=== PATIENT | female | born 2000 | race Caucasian/White ===

== ENCOUNTER 2023-01-09 06:06 | Emergency (ER) | payer MEDICAID, SELFPAY ==
[2023-01-09 06:09] VITALS: BP 121/81; PULSE 109; RESP 16; TEMP 36.9; O2SAT 98; BMI 20.5
--- NOTE | 2023-01-09 06:23 | EX.ED.DYSGE1 ---
HPI History of Present Illness Chief Complaint: Nausea/Vomiting Detail of Chief Complaint: Vomiting Informant: patient Narrative Narrative: Patient presents to the emergency department complaint not feeling well since 2 AM. Patient states she has vomited x2. She denies any diarrhea. She denies abdominal pain. Patient states that she is 17 weeks . She thinks that she may have had food poisoning and that she ate some chicken wings from [employer] yesterday. Denies sick contacts. Patient is G1, P0. PFSH PFSH Medical History no medical history Home Medications vitamins no.144-folic acid 400 mcg chewable tablet () 1 tab PO DAILY 01/09/23 [History Last Taken Unknown] Allergy/AdvReac Type Severity Reaction Status Date / Time No Known Allergies Allergy Verified 01/09/23 06:07 Social History Smoking Status: Never smoker ROS ROS ED Review of Systems ROS Unobtainable: other Constitutional Constitutional ED: Reports lethargy; Denies chills, fever(s), sweats or weight loss Eyes Eyes: Denies blurry vision, change in vision or diplopia ENT ENT ED: Denies rhinorrhea or sore throat Cardiovascular Cardiovascular: Denies chest pain, orthopnea or racing heartbeat Respiratory/Chest Respiratory/Chest: Denies cough, dyspnea, dyspnea on exertion, orthopnea or sputum Gastrointestinal Gastrointestinal: Reports nausea and vomiting; Denies abdominal pain or diarrhea Genitourinary Genitourinary ED: Denies dysuria, hematuria or urinary frequency Musculoskeletal Musculoskeletal: Denies arthralgias, back pain, myalgias or neck pain Integumentary Denies abscess, Abrasions or rash Neurologic Neurologic: Denies headache(s) or weakness Psychiatric Psychiatric: Denies anxiety, depression or suicidal thoughts Endocrine Endocrinology: Denies polydipsia, polyphagia or polyuria Hematologic/Lymphatic Hematologic/Lymphatic: Denies easy bleeding, easy bruising or lymphadenopathy Allergic/Immunologic Allergic/Immunologic ED: Denies mouth swelling, tongue swelling or urticaria EXAM Physical Exam Narrative Exam Narrative: Patient presents with vomiting x2 with concern for food poisoning. She denies fevers. She does not have any abdominal pain. In the differential would be viral gastroenteritis versus food poisoning versus hyperemesis gravidarum. IV line was established. Basic labs ordered. heart tones ordered and urinalysis ordered. Patient was given a liter normal same fluid bolus and Zofran 4 mg IV. Case will be turned over to morning physician awaiting lab results and final disposition. Const Vital Signs: 01/09/23 06:09 Temperature 98.4 F Temperature Source Temporal Pulse Rate 109 H Respiratory Rate 16 Blood Pressure 121/81 H Blood Pressure Mean 94 Pulse Ox 98 Oxygen Delivery Method Room Air Positive well nourished and well developed General Appearance ED: well developed and NAD HEENT Reports TM's clear and moist mucous membranes normocephalic and atraumatic; Negative for trauma or tenderness Tympanic Membrane ED: Yes TM's clear Eyes PERRL and EOMs intact bilaterally General Eye ED: Negative for pale conjunctiva or scleral icterus Neck no lymphadenopathy, supple and no JVD General: Negative for tenderness Chest Wall inspection of chest normal and palpation of chest normal Chest: Negative for tenderness Resp normal respiratory effort and clear to auscultation bilaterally Effort and Inspection: Negative for respiratory distress or pain with movement Auscultation: Negative for rhonchi, wheezes or diminished lung sounds Cardio regular rate, regular rhythm, S1 normal heart sound, S2 normal heart sound and no murmurs Peripheral Pulses: pulses 2+ throughout GI normal to inspection, nondistended, normoactive bowel sounds, soft to palpation, non-tender, non-distended and no masses Back/Spine no CVA tenderness and no thoracic nor lumbar tenderness Extremity normal to inspection General Extremety ED: Negative for edema General Extremity: Negative for edema Neuro oriented x3, CN's II-XII intact bilaterally, no sensory deficits noted and gait normal Sensorium / Orientation: awake, alert, oriented to person, oriented to place and oriented to time Motor Exam: strength 5/5 throughout and strength abnormal Psych mental status grossly normal Skin no rashes or lesions noted and no wounds MDM MDM MDM Narrative Medical decision making narrative: Is presenting with vomiting concern for food poisoning. IV line established. Patient was medicated with Zofran and given a liter normal same fluid bolus. heart tones ordered. Urinalysis will be obtained. Lab work-up was unremarkable. Case will be turned over to morning physician awaiting urinalysis and final disposition. Lab Data Attestation: I reviewed the patient's lab results. Labs: Laboratory Results - last 24 hr 01/09/23 01/09/23 07:00 08:00 WBC 7.3 RBC 3.50 L Hgb 10.8 L Hct 32.2 L MCV 92.0 MCH 30.9 MCHC 33.5 RDW Std Deviation 42.2 RDW Coeff of Sonu 12.8 Plt Count 178 MPV 9.3 Immature Gran % (Auto) 0.400 Neut % (Auto) 90.6 H Lymph % (Auto) 2.9 L [place] % (Auto) 5.2 Eos % (Auto) 0.6 Baso % (Auto) 0.3 Absolute Neuts (auto) 6.6 Absolute Lymphs (auto) 0.21 L Nucleated RBC % 0 Sodium 136 Potassium 3.6 Chloride 109 H Carbon Dioxide 24.0 Anion Gap 3 L BUN 7 Creatinine 0.52 L Estim Creat Clear Calc 129.14 Est GFR (MDRD) Af Amer 192 Est GFR (MDRD) Non-Af 159 BUN/Creatinine Ratio 13.6 Glucose 89 Calcium 8.4 L Urine Color Yellow Urine Clarity Sl. Cloudy Urine pH 6.0 Ur Specific [place] 1.020 Urine Protein Negative Urine Glucose (UA) Normal Urine Ketones 50 H Urine Occult Blood Negative Urine Nitrite Negative Urine Bilirubin Negative Urine Urobilinogen Normal Ur Leukocyte Esterase Negative Discharge Plan Triage Chief Complaint: Nausea/Vomiting ED Provider: Inocencio Pena Dx/Rx/DC Orders Clinical Impression: , Vomiting Prescriptions: No Action 400 mcg tablet,chewable 1 tab PO DAILY Primary Care Provider: Babs Kauffman Referrals: Babs Kauffman MD [Primary Care Provider] - Disposition Disposition: Home, Self Care
[2023-01-09] MEDS: 0.9% Normal Saline 1,000 ML 1000 ML IV (06:59)
[2023-01-09] MEDS: Ondansetron 4 MG/2 ML Vial IV (06:59)
[2023-01-09 07:07] LABS: Absolute Lymphocyte Count 0.21 X10^3/uL (0.83-4.51); Absolute Neutrophil Count 6.6 X10^3/uL (2.0-7.7); Basophil# 0.02 X10^3/uL; Basophil% 0.3 % (0-1); Eosinophil# 0.04 X10^3/uL; Eosinophils% 0.6 % (0-5); Hematocrit 32.2 % (37-47); Hemoglobin 10.8 g/dL (12.0-15.0); Lymphocyte # 0.21 X10^3/ul (0.83-4.51); Lymphocyte % 2.9 % (19-41); Mean Corp Hgb Conc 33.5 g/dL (32-36); Mean Corpuscular Hgb 30.9 pg (27.0-32.0); Mean Platelet Vol. 9.3 fl (6.2-12.0); Monocyte# 0.38 X10^3/uL; Monocyte% 5.2 % (0-10); NRBC Flagged by Analyzer 0 % (0-5); Neutrophil # 6.59 X10^3/uL (2.7-7.7); Neutrophil % 90.6 % (47-70); POSITIVE DIFFERENTIAL YES; Platelet Count 178 K/mm3 (150-450); RBC Distribution Width CV 12.8 % (11.6-14.6); RBC Distribution Width SD 42.2 fl (35.1-43.9); White Blood Count 7.3 K/mm3 (4.4-11.0)
[2023-01-09 07:11] LABS: Differential Indicated SCAN CRITERIA MET
[2023-01-09 07:24] LABS: Anion Gap 3 (5-15); BUN 7 mg/dL (7-18); BUN/Creat Ratio 13.6 RATIO (10-20); Calcium,Total 8.4 mg/dL (8.5-10.1); Chloride 109 mmol/L (98-107); Creatinine, Serum 0.52 mg/dL (0.55-1.02); EST Glomerular Filtration Rate 159 mL/min (>60); Est Glom Filt Rate - Afr Amer 192 mL/min (>60); Estimated Creatinine Clearance 129.14 ml/min; Glucose 89 mg/dL (74-106); Potassium 3.6 mmol/L (3.5-5.1); Sodium Level 136 mmol/L (136-145)
[2023-01-09 08:05] LABS: Red Blood Cells-Urine 0 SEEN /hpf (0-5)
[2023-01-09 08:19] LABS: Color, Urine Yellow (Yellow); Glucose, Dipstick Normal (Normal); Ketone-Dipstick 50 mg/dl (Negative); Leukocyte Esterase-Dipstick Negative /ul (Negative); Nitrite-Dipstick Negative (Negative); Occult Blood-Urine Negative /ul (Negative); Protein-Dipstick Negative (Negative); Urine Bilirubin Dipstick Negative (Negative); Urine Clarity Sl. Cloudy (Clear); Urine Urobilinogen Normal (Normal)
[2023-01-09 08:33] LABS: Bacteria RARE /hpf (None Seen); Mucous, Urine RARE /hpf (<or=2+); Squamous Epithelial Cells - UA 5-10 SEEN /hpf (5-10); White Blood Cells 0-5 SEEN /hpf (0-5)
[2023-01-09] MEDS: Metoclopramide 10 MG/2 ML Vial 5 MG IV (09:26)
[2023-01-09] MEDS: 0.9% Normal Saline 1,000 ML 999 ML IV (09:28)
[2023-01-09 12:10] VITALS: BP 118/78; PULSE 64; RESP 14; TEMP 36.6; O2SAT 99
== END 2023-01-09 12:15 | disposition home or self-care (01) ==
PROVIDERS: Emergency Provider Emergency Medicine; PCP Obstetrics & Gynecology; Visit Provider Emergency Medicine
DX: O99.891 Other specified diseases and conditions complicating pregnancy (principal); R11.2 Nausea with vomiting, unspecified; Z3A.17 17 weeks gestation of pregnancy
CPT/HCPCS: 80048; 81001; 85025; 96361; 96374; 96375; 99283; J7030; A4216; J2405

== ENCOUNTER 2023-02-11 15:25 | Outpatient (CLI) | payer MEDICAID, SELFPAY ==
[2023-02-11 15:47] VITALS: BMI 21.4
[2023-02-11 15:49] VITALS: BP 113/61; PULSE 92; O2SAT 100
--- NOTE | 2023-02-11 19:53 | OB.TRI.NOTE ---
HPI - General HPI Narrative TENZIN QIU, is a 22 F who presents Maternal Data Information Final JOHN: 06[birth year] Gestational age: 22&1 PFSH PFSH Home Medications ondansetron 4 mg disintegrating tablet 4 mg PO Q8H PRN PRN Nausea #10 tabs 01/09/23 [Rx Last Taken Unknown] vitamins no.144-folic acid 400 mcg chewable tablet () 1 tab PO DAILY 01/09/23 [History Last Taken 02/11/23 08:00 1 TAB] Allergy/AdvReac Type Severity Reaction Status Date / Time No Known Allergies Allergy Verified 02/11/23 15:45 Social History Smoking Status: Never smoker Assessment & Plan (1) Abdominal cramping: PLAN: Plan FHTS reassuring at 130 Patient with likely GI virus
== END 2023-02-11 16:40 | disposition home or self-care (01) ==
LOC: WPOUT 15:30 → WP 15:30
PROVIDERS: Referring Provider Obstetrics & Gynecology; Visit Provider Obstetrics & Gynecology
DX: O99.891 Other specified diseases and conditions complicating pregnancy (principal); R10.9 Unspecified abdominal pain; Z3A.22 22 weeks gestation of pregnancy
CPT/HCPCS: 99221; G0378

== ENCOUNTER 2023-04-25 11:55 | Emergency (ER) | payer MEDICAID, SELFPAY ==
[2023-04-25 11:55] VITALS: BP 126/86; PULSE 85; RESP 16; TEMP 36.2; O2SAT 99; BMI 22.8
--- NOTE | 2023-04-25 12:51 | CT_ITS ---
STUDY: CTA CHEST REASON FOR EXAM: Female, 22 years old. Pulmonary embolism -- third trimester . Chest pain for 4 days. RADIATION DOSAGE (If Supplied By Facility): CTDIvol = ( 4.81 ) mGy, DLP = ( 108.62 ) mGycm TECHNIQUE: The examination was performed with the intravenous administration of IV 100mL Isovue-370. Post-processing of the angiographic images was performed, with multiplanar reformation and 3D reconstruction. Individualized dose optimization techniques were used for this CT. COMPARISON: None. FINDINGS: Normal enhancement of the main pulmonary artery and right and left pulmonary arteries. Normal enhancement of the bilateral peripheral pulmonary arteries. There is no demonstrated pulmonary embolism. Normal thoracic aorta and visualized great vessels. There is no demonstrated aortic dissection. Normal heart and pericardium. Normal mediastinum. Normal hilar regions. Normal visualized trachea and bronchi. The lungs are well expanded. Normal pulmonary parenchyma. Normal pleura. Normal chest wall structures. Normal osseous structures. Normal visualized upper abdomen. CT/CTA Chest W/WO Contrast IMPRESSION: Normal CTA chest examination, without a demonstrated pulmonary embolism or arterial dissection. Electronically Signed: Homer Marcano MD at 13:36 EST ,
--- NOTE | 2023-04-25 12:53 | EX.ED.DYSGE1 ---
HPI History of Present Illness Chief Complaint: Chest Pain Informant: patient Narrative Narrative: 22-year-old female presenting to the emergency room for chest pain. Symptoms have been present for approximately 4 days. She states they are constant. She describes it as sharp midsternal pain that is worse with lying in certain positions walking and deep breathing. She denies any belching or reflux. No cough or fever. She states that she is 32 weeks . He has not had any complications this . She reports feeling short of breath at times. Laying on her left side seems to improve it. She states that her chest does not sore to touch. PFSH PFS Medical History no medical history no medical history Home Medications vitamins no.144-folic acid 400 mcg chewable tablet () 1 tab PO DAILY 01/09/23 [History Last Taken 02/11/23 08:00 1 TAB] famotidine 20 mg tablet 20 mg PO DAILY 04/25/23 [History Last Taken Unknown] Allergy/AdvReac Type Severity Reaction Status Date / Time No Known Allergies Allergy Verified 02/11/23 15:45 Social History Smoking Status: Never smoker ROS ROS ED Constitutional Constitutional ED: Denies chills, fever(s) or weight loss Eyes Eyes: Denies change in vision or diplopia ENT ENT ED: Denies ear pain, rhinorrhea or sore throat Cardiovascular Cardiovascular: Reports chest pain; Denies orthopnea, palpitations or racing heartbeat Respiratory/Chest Respiratory/Chest: Reports cough and dyspnea on exertion; Denies dyspnea or orthopnea Gastrointestinal Gastrointestinal: Denies abdominal pain, diarrhea, nausea or vomiting Genitourinary Genitourinary ED: Denies dysuria, hematuria or urinary frequency Musculoskeletal Musculoskeletal: Denies arthralgias or myalgias Integumentary Denies abscess or rash Neurologic Neurologic: Denies headache(s) or weakness Psychiatric Psychiatric: Denies anxiety, depression, suicidal ideation or suicidal thoughts Endocrine Endocrinology: Denies polydipsia, polyphagia or polyuria Allergic/Immunologic Allergic/Immunologic ED: Denies mouth swelling, tongue swelling or urticaria EXAM Physical Exam Const Vital Signs: 04/25/23 11:55 04/25/23 13:02 Temperature 97.2 F L Temperature Source Temporal Pulse Rate 85 Respiratory Rate 16 Respiratory Effort Normal Blood Pressure 126/86 H Blood Pressure Mean 99 Pulse Ox 99 Oxygen Delivery Method Room Air Positive well nourished and well developed General Appearance ED: well developed HEENT Reports normocephalic, head/scalp atraumatic and moist mucous membranes Eyes PERRL and EOMs intact bilaterally Neck no lymphadenopathy, supple and no JVD Resp normal respiratory effort and clear to auscultation bilaterally Cardio regular rate, regular rhythm and no murmurs GI normal to inspection, nondistended, normoactive bowel sounds and non-tender Palpation: soft Back/Spine no CVA tenderness and normal ROM Extremity normal to inspection General Extremety ED: Negative for edema General Extremity: Negative for edema Neuro oriented x3 and CN's II-XII intact bilaterally Sensorium / Orientation: alert Motor Exam: strength 5/5 throughout Psych mental status grossly normal Mood & Affect: Negative for depressed or tearful Skin no rashes or lesions noted and no wounds MDM MDM MDM Narrative Medical decision making narrative: Patient is EKG is normal sinus rhythm with incomplete right bundle branch block. Troponin is normal at 5. CBC with a hemoglobin of 10.7 which is not new. CTA of the chest demonstrated no pulmonary embolism or dissection. No large pericardial effusion noted. I do not believe that this is pericarditis, myocarditis, ACS, embolism, dissection, pneumothorax, or other acute intrathoracic emergency. Given the above findings and the nature of her pain is most likely musculoskeletal in nature. 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 Tylenol for pain return if worsening or concerns History & Record Review Discussion w/independent historian: Patient Additional record(s) reviewed:: Prior ED visit and Prior labs Lab Data Attestation: I reviewed the patient's lab results. Labs: Laboratory Results - last 24 hr 04/25/23 13:04 WBC 8.4 RBC 3.48 L Hgb 10.7 L Hct 31.7 L MCV 91.1 MCH 30.7 MCHC 33.8 RDW Std Deviation 41.3 RDW Coeff of Sonu 12.6 Plt Count 167 MPV 9.5 Immature Gran % (Auto) 0.600 Neut % (Auto) 70.7 H Lymph % (Auto) 20.5 [place] % (Auto) 7.1 Eos % (Auto) 0.7 Baso % (Auto) 0.4 Absolute Neuts (auto) 5.9 Absolute Lymphs (auto) 1.72 Nucleated RBC % 0 Sodium 138 Potassium 3.7 Chloride 110 H Carbon Dioxide 21.0 Anion Gap 7 BUN 5 L Creatinine 0.53 L Estim Creat Clear Calc 126.70 Est GFR (MDRD) Af Amer 185 Est GFR (MDRD) Non-Af 153 BUN/Creatinine Ratio 9.4 L Glucose 86 Calcium 8.7 Troponin I High Sens 5 Radiography Diagnostic Testing: Clinical Impression(s) from Imaging Studies Chest CTA 04/25/23 12:51 IMPRESSION: Normal CTA chest examination, without a demonstrated pulmonary embolism or arterial dissection. Electronically Signed: Homer Marcano MD at 13:36 EST , EKG Initial EKG: Attestation: I personally reviewed and interpreted this EKG as follows: Comments: Normal sinus rhythm with an incomplete right bundle branch block. Ventricular rate is 85 bpm. 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 Disposition Disposition: Home, Self Care
[2023-04-25 13:08] LABS: Absolute Lymphocyte Count 1.72 X10^3/uL (0.83-4.51); Absolute Neutrophil Count 5.9 X10^3/uL (2.0-7.7); Basophil# 0.03 X10^3/uL; Basophil% 0.4 % (0-1); Eosinophil# 0.06 X10^3/uL; Eosinophils% 0.7 % (0-5); Hematocrit 31.7 % (37-47); Hemoglobin 10.7 g/dL (12.0-15.0); Lymphocyte # 1.72 X10^3/ul (0.83-4.51); Lymphocyte % 20.5 % (19-41); Mean Corp Hgb Conc 33.8 g/dL (32-36); Mean Corpuscular Hgb 30.7 pg (27.0-32.0); Mean Corpuscular Volume 91.1 fL (81-99); Mean Platelet Vol. 9.5 fl (6.2-12.0); Monocyte% 7.1 % (0-10); NRBC Flagged by Analyzer 0 % (0-5); Neutrophil # 5.94 X10^3/uL (2.7-7.7); Neutrophil % 70.7 % (47-70); Platelet Count 167 K/mm3 (150-450); RBC Distribution Width CV 12.6 % (11.6-14.6); RBC Distribution Width SD 41.3 fl (35.1-43.9); Red Blood Count 3.48 M/mm3 (4.2-5.4); White Blood Count 8.4 K/mm3 (4.4-11.0)
[2023-04-25 13:29] LABS: Anion Gap 7 (5-15); BUN 5 mg/dL (7-18); BUN/Creat Ratio 9.4 RATIO (10-20); Calcium,Total 8.7 mg/dL (8.5-10.1); Chloride 110 mmol/L (98-107); Creatinine, Serum 0.53 mg/dL (0.55-1.02); EST Glomerular Filtration Rate 153 mL/min (>60); Est Glom Filt Rate - Afr Amer 185 mL/min (>60); Glucose 86 mg/dL (74-106); Potassium 3.7 mmol/L (3.5-5.1); Sodium Level 138 mmol/L (136-145); Troponin-I HS 5 pg/mL (3.0-54.0)
--- NOTE | 2023-04-25 14:01 | EKG12_ITS ---
Test Reason : CP Blood Pressure : / mmHG Vent. Rate : 085 BPM Atrial Rate : 085 BPM P-R Int : 114 ms QRS Dur : 104 ms QT Int : 412 ms P-R-T Axes : 007 054 017 degrees QTc Int : 490 ms Normal sinus rhythm Incomplete right bundle branch block Nonspecific ST abnormality Prolonged QT Abnormal ECG Confirmed by ALYSON YOUSSEF, KAYKAY ([id number]), editorial assistant SANTO TONG ([id number]) on 05/06/2023 8:42:14 AM Referred By: MELONIE/SUZANNE Confirmed By:KAYKAY SHIELDS MD
[2023-04-25 14:41] VITALS: BP 118/81; PULSE 99; RESP 16; O2SAT 96
== END 2023-04-25 14:42 | disposition home or self-care (01) ==
PROVIDERS: Emergency Provider Emergency Medicine; Visit Provider Emergency Medicine
DX: R07.9 Chest pain, unspecified (principal); O99.413 Diseases of the circulatory system complicating pregnancy, third trimester; I45.10 Unspecified right bundle-branch block; Z3A.32 32 weeks gestation of pregnancy
CPT/HCPCS: 71275; 80048; 84484; 85025; 93005; 99283; Q9967; A4216

== ENCOUNTER 2023-04-28 16:45 | Emergency (ER) | payer MEDICAID, SELFPAY ==
[2023-04-28 16:51] VITALS: BP 123/76; PULSE 103; RESP 18; TEMP 36.3; O2SAT 99; BMI 23.3
[2023-04-28 16:54] VITALS: BP 123/76; PULSE 103; RESP 18; TEMP 36.3; O2SAT 99
--- NOTE | 2023-04-28 17:05 | EKG12_ITS ---
Test Reason : CP Blood Pressure : / mmHG Vent. Rate : 090 BPM Atrial Rate : 090 BPM P-R Int : 112 ms QRS Dur : 108 ms QT Int : 388 ms P-R-T Axes : 009 061 013 degrees QTc Int : 474 ms Normal sinus rhythm Right bundle branch block Abnormal ECG Confirmed by ALYSON YOUSSEF, KAYKAY ([id number]), news editor SANTO TONG ([id number]) on 05/06/2023 9:25:06 AM Referred By: KACEY Confirmed By:KAYKAY SHIELDS MD
--- NOTE | 2023-04-28 17:06 | EDS_ITS ---
HPI History of Present Illness Chief Complaint: Chest Other Detail of Chief Complaint: Chest pain Informant: patient Narrative Narrative: Patient presents to the emergency department complaint of chest pain x 1 week. Patient was seen in the emergency department 3 days ago and was told pain may be related to the in the uterus enlarging pressing up against the chest. Patient was told to come back if the pain worsened. Patient continues to complain of pain that is constant and describes it as sharp and worse with movement and deep breath at times. She is G1, P0. She is about 33 weeks . No prior history of PE or DVT. Denies recent illness. She denies cough. She denies fever. [facility] Medical History (Updated 04/28/23 @ 18:[address] Inocencio Pena DO) Cheek injury Home Medications vitamins no.144-folic acid 400 mcg chewable tablet () 1 tab PO DAILY 01/09/23 [History Last Taken 04/28/23] famotidine 20 mg tablet 20 mg PO DAILY 04/25/23 [History Last Taken 04/28/23] Allergy/AdvReac Type Severity Reaction Status Date / Time No Known Allergies Allergy Verified 04/28/23 16:50 Social History Smoking Status: Never smoker ROS ROS ED Review of Systems ROS Unobtainable: other Constitutional Constitutional ED: Reports lethargy; Denies chills, fever(s), sweats or weight loss Eyes Eyes: Denies blurry vision, change in vision or diplopia ENT ENT ED: Denies rhinorrhea or sore throat Cardiovascular Cardiovascular: Reports chest pain; Denies orthopnea or racing heartbeat Respiratory/Chest Respiratory/Chest: Reports dyspnea and dyspnea on exertion; Denies cough, orthopnea or sputum Gastrointestinal Gastrointestinal: Denies abdominal pain, diarrhea, nausea or vomiting Genitourinary Genitourinary ED: Denies dysuria, hematuria or urinary frequency Musculoskeletal Musculoskeletal: Denies arthralgias, back pain, myalgias or neck pain Integumentary Denies abscess, Abrasions or rash Neurologic Neurologic: Denies headache(s) or weakness Psychiatric Psychiatric: Denies anxiety, depression or suicidal thoughts Endocrine Endocrinology: Denies polydipsia, polyphagia or polyuria Hematologic/Lymphatic Hematologic/Lymphatic: Denies easy bleeding, easy bruising or lymphadenopathy Allergic/Immunologic Allergic/Immunologic ED: Denies mouth swelling, tongue swelling or urticaria EXAM Physical Exam Const Vital Signs: 04/28/23 16:51 04/28/23 16:54 04/28/23 17:39 Temperature 97.4 F L 97.4 F L Temperature Source Temporal Temporal Pulse Rate 103 H 103 H Respiratory Rate 18 18 Respiratory Effort Non-Labored Short of Breath Respiratory Pattern Normal Blood Pressure 123/76 H 123/76 H Blood Pressure Mean 91 91 Pulse Ox 99 99 Oxygen Delivery Method Room Air Room Air 04/28/23 18:29 Temperature 98.0 F Temperature Source Pulse Rate 85 Respiratory Rate 18 Respiratory Effort Respiratory Pattern Blood Pressure 115/74 Blood Pressure Mean 87 Pulse Ox 99 Oxygen Delivery Method Positive well nourished and well developed General Appearance ED: well developed and NAD HEENT Reports TM's clear and moist mucous membranes normocephalic and atraumatic; Negative for trauma or tenderness Tympanic Membrane ED: Yes TM's clear Eyes PERRL and EOMs intact bilaterally General Eye ED: Negative for pale conjunctiva or scleral icterus Neck no lymphadenopathy, supple and no JVD General: Negative for tenderness Chest Wall inspection of chest normal and palpation of chest normal Chest: Negative for tenderness Resp normal respiratory effort and clear to auscultation bilaterally Effort and Inspection: Negative for respiratory distress or pain with movement Auscultation: Negative for rhonchi, wheezes or diminished lung sounds Cardio regular rate, regular rhythm, S1 normal heart sound, S2 normal heart sound and no murmurs Peripheral Pulses: pulses 2+ throughout GI normal to inspection, nondistended, normoactive bowel sounds, soft to palpation, non-tender, non-distended and no masses Back/Spine no CVA tenderness and no thoracic nor lumbar tenderness Extremity normal to inspection General Extremety ED: Negative for edema General Extremity: Negative for edema Neuro oriented x3, CN's II-XII intact bilaterally, no sensory deficits noted and gait normal Sensorium / Orientation: awake, alert, oriented to person, oriented to place and oriented to time Motor Exam: strength 5/5 throughout and strength abnormal Psych mental status grossly normal Skin no rashes or lesions noted and no wounds MDM MDM MDM Narrative Medical decision making narrative: Patient presents with 1 week history of sharp chest pain. She was seen in the emergency department 3 days ago for the same complaint. Patiently initially did not tell me that she had a CTA of her chest 3 days ago that was unremarkable. I did order basic labs and an EKG on arrival. EKG showed a sinus rhythm with a rate of 90 bpm with right bundle branch block otherwise no acute abnormalities. CBC with differential showed WBC count that was unremarkable and she also had a normal sed rate at 25. Chemistries unremarkable. Troponin was normal. I did give her a GI cocktail and that really did not seem to make much difference in her pain. I did give her some Tylenol for complaint of a headache. Her chest pain is somewhat reproducible therefore I suspect possibly musculoskeletal etiology. Do not feel her exam and history consistent with pericarditis. No evidence of endocarditis. Clinically she looks well. She will continue with Tylenol and does not want any narcotic pain medicine. She is advised to avoid ibuprofen in the third trimester. Lab Data Attestation: I reviewed the patient's lab results. Labs: Laboratory Results - last 24 hr 04/28/23 17:35 WBC 10.1 RBC 3.49 L Hgb 11.1 L Hct 31.9 L MCV 91.4 MCH 31.8 MCHC 34.8 RDW Std Deviation 42.4 RDW Coeff of Sonu 13.0 Plt Count 214 MPV 9.7 Immature Gran % (Auto) 0.500 Neut % (Auto) 73.6 H Lymph % (Auto) 16.7 L [place] % (Auto) 7.6 Eos % (Auto) 1.3 Baso % (Auto) 0.3 Absolute Neuts (auto) 7.4 Absolute Lymphs (auto) 1.69 Nucleated RBC % 0 ESR 25 Sodium 138 Potassium 3.8 Chloride 109 H Carbon Dioxide 22.0 Anion Gap 7 BUN 7 Creatinine 0.59 Estim Creat Clear Calc 113.82 Est GFR (MDRD) Af Amer 165 Est GFR (MDRD) Non-Af 136 BUN/Creatinine Ratio 11.9 Glucose 94 Calcium 8.7 Troponin I High Sens 3 EKG Initial EKG: Attestation: I personally reviewed and interpreted this EKG as follows: Comments: Sinus rhythm with rate of 90 bpm with right bundle branch block Discharge Plan Triage Chief Complaint: Chest Other ED Provider: Inocencio Pena Dx/Rx/DC Orders Clinical Impression: Chest pain Instructions: ED Chest Pain, Uncertain Cause Prescriptions: No Action 400 mcg tablet,chewable 1 tab PO DAILY famotidine 20 mg tablet 20 mg PO DAILY Primary Care Provider: Care Physician,No Primary Referrals: Care Physician,No Primary [Primary Care Provider] - Activity Restrictions/Additional Instructions: 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 Return if worsening pain, increasing shortness of breath, or condition worsening weight. Disposition Disposition: Home, Self Care Discharge Date/Time: 04/28/23 18:30
--- NOTE | 2023-04-28 17:08 | NURSING ---
NO OLD EKGS
[2023-04-28] MEDS: Mag Hydrox/Al Hydrox/Simeth 30 ML UDC PO (17:47)
[2023-04-28 17:53] LABS: Absolute Lymphocyte Count 1.69 X10^3/uL (0.83-4.51); Absolute Neutrophil Count 7.4 X10^3/uL (2.0-7.7); Basophil# 0.03 X10^3/uL; Basophil% 0.3 % (0-1); Eosinophil# 0.13 X10^3/uL; Eosinophils% 1.3 % (0-5); Hematocrit 31.9 % (37-47); Hemoglobin 11.1 g/dL (12.0-15.0); Lymphocyte # 1.69 X10^3/ul (0.83-4.51); Lymphocyte % 16.7 % (19-41); Mean Corp Hgb Conc 34.8 g/dL (32-36); Mean Corpuscular Hgb 31.8 pg (27.0-32.0); Mean Corpuscular Volume 91.4 fL (81-99); Mean Platelet Vol. 9.7 fl (6.2-12.0); Monocyte# 0.77 X10^3/uL; Monocyte% 7.6 % (0-10); NRBC Flagged by Analyzer 0 % (0-5); Neutrophil # 7.42 X10^3/uL (2.7-7.7); Neutrophil % 73.6 % (47-70); Platelet Count 214 K/mm3 (150-450); RBC Distribution Width SD 42.4 fl (35.1-43.9); Red Blood Count 3.49 M/mm3 (4.2-5.4); White Blood Count 10.1 K/mm3 (4.4-11.0)
[2023-04-28 18:07] LABS: Anion Gap 7 (5-15); BUN 7 mg/dL (7-18); BUN/Creat Ratio 11.9 RATIO (10-20); Calcium,Total 8.7 mg/dL (8.5-10.1); Chloride 109 mmol/L (98-107); Creatinine, Serum 0.59 mg/dL (0.55-1.02); EST Glomerular Filtration Rate 136 mL/min (>60); Est Glom Filt Rate - Afr Amer 165 mL/min (>60); Estimated Creatinine Clearance 113.82 ml/min; Glucose 94 mg/dL (74-106); Potassium 3.8 mmol/L (3.5-5.1); Sodium Level 138 mmol/L (136-145); Troponin-I HS 3 pg/mL (3.0-54.0)
[2023-04-28] MEDS: Acetaminophen 325 MG Tablet 650 MG PO (18:08)
[2023-04-28 18:11] LABS: Erythrocyte Sedimentation Rate 25 mm/hr (0-30)
[2023-04-28 18:29] VITALS: BP 115/74; PULSE 85; RESP 18; TEMP 36.7; O2SAT 99
== END 2023-04-28 18:30 | disposition home or self-care (01) ==
PROVIDERS: Emergency Provider Emergency Medicine; Visit Provider Emergency Medicine
DX: R07.9 Chest pain, unspecified (principal); O99.413 Diseases of the circulatory system complicating pregnancy, third trimester; I45.10 Unspecified right bundle-branch block; Z3A.33 33 weeks gestation of pregnancy
CPT/HCPCS: 80048; 84484; 85025; 85652; 93005; 99285; A4216

== ENCOUNTER 2023-04-29 17:50 | Outpatient (CLI) | payer MEDICAID, SELFPAY ==
[2023-04-29 18:03] VITALS: BP 126/77; PULSE 88
[2023-04-29 18:08] VITALS: BMI 23.3
[2023-04-29 18:09] VITALS: TEMP 36.6; O2SAT 99
--- NOTE | 2023-05-03 11:13 | PCM.PN.CNM ---
Subjective Subjective 33wd with JOHN 06/16/23. Presents for increased vaginal discharge and possible ROM. Objective Data Objective Data Vital Signs: Vital Signs Temp Pulse BP Pulse Ox 97.9 F 88 126/77 H 99 04/29/23 18:09 04/29/23 18:03 04/29/23 18:03 04/29/23 18:09 Weight: 123 lb 14.397 oz Body Mass Index (BMI) 23.3 NST FHR Rate Baby A Baseline: 115 Variability:: Moderate Accelerations:: 15 x 15 Decelerations:: None NST Reactive:: Yes Uterine Activity:: None Assessment & Plan (1) Vaginal discharge: (2) 33 weeks gestation of : PLAN: Plan 1) ROM plus negative 2) No signs of PTL 3) Reactive NST 4) D/C home, follow up as scheduled for PN care
== END 2023-04-29 18:50 | disposition home or self-care (01) ==
LOC: WPOUT 17:59 → WP 18:00
PROVIDERS: Referring Provider Advanced Practice Midwife; Visit Provider Advanced Practice Midwife
DX: O99.891 Other specified diseases and conditions complicating pregnancy (principal); N89.8 Other specified noninflammatory disorders of vagina; Z3A.33 33 weeks gestation of pregnancy
CPT/HCPCS: 59025; 59050; 99221; G0378

== ENCOUNTER 2023-05-02 22:10 | Outpatient (CLI) | payer MEDICAID, SELFPAY ==
[2023-05-02 22:20] VITALS: BMI 23.4
--- OUTSIDE RECORDS SUMMARY | 2023-05-02 22:20 | XMS RPT_ITS | CCD ---
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 1:20 PM EST SEQUENTIAL SCREENINGS The [facility] offers sequential screenings for women who are interested in screenings for chromosomal abnormalities and certain defects during a . The sequential screen combines ultrasound and blood tests to determine the risk of chromosomal abnormalities, including Down's Syndrome (Trisomy 21) and Trisomy 18, as well as open neural tube defects including spina bifida. Ultrasound examination is performed between 11 weeks and 13 weeks gestational age. Blood tests are drawn after the ultrasound and again later in the between 15 and 21 weeks gestational age. Please let your physician know if you are interested in this testing. It will require an appointment with our serology technician. This is not an ultrasound performed by a physician in our office during a routine visit. SIGNS AND SYMPTOMS OF LABOR 1. Contractions every 10 minutes or more often 2. Clear, pink, or brownish fluid (water) leaking from vagina 3. Feeling that baby is pushing down, pressure 4. Low, dull backache 5. Cramps that feel like a period 6. Cramps with or without diarrhea If you notice any of the above symptoms, contact our office at [phone] and ask to speak with a nurse. After hours, you can call doctors registry at [phone] OR call [facility] at [phone] and ask to have the doctor proration clerk paged. If you consider this an emergency, dial 3-2-8 or go to your nearest emergency department. NEED HELP? Are you dealing with a violent or abusive relationship? Are you a victim of rape or sexual assult? Call [facility] ([place]) 24 hour Crisis Hotline: 625.387.6347 or 482-009-7092. MANUAL Your Guide to a Healthy manual is now on-line. Visit [email or web address] [email or web address] to download your free copy documented in this encounter [facility] 03-12-2023 Miscellaneous Notes RAMON-S: Yee Qiu is a 22 year old female who presents at 26w2d with JOHN:06/16/2023, by Last Menstrual Period for a routine visit. Good FM. Denies headache, visual changes, chest pain, shortness of breath, vaginal bleeding, leakage of fluid, or dysuria. Feeling well, no complaints. O: See flow sheet Gen: No apparent distress Abd: Gravid, nontender ASSESSMENT/PLAN: 1. Encounter for care in second trimester of first 2. 26 weeks gestation of 3. with care elsewhere, antepartum 4. History of anxiety 5. Family history of spina bifida P: 1) PTL precautions reviewed and when to call 2) RTO in 2 weeks 3) Skin rash, OTC treatment at this time, if no improvement to follow up 4)1hr GTT, CBC, RPR next visit 5) Tdap next visit Chelsy Gutierrez APRN.CNM documented in this encounter [facility] 03-12-2023 Instructions Chelsy Gutierrez APRN.CNM - 03/12/2023 9:13 AM EST SEQUENTIAL SCREENINGS The [facility] offers sequential screenings for women who are interested in screenings for chromosomal abnormalities and certain defects during a . The sequential screen combines ultrasound and blood tests to determine the risk of chromosomal abnormalities, including Down's Syndrome (Trisomy 21) and Trisomy 18, as well as open neural tube defects including spina bifida. Ultrasound examination is performed between 11 weeks and 13 weeks gestational age. Blood tests are drawn after the ultrasound and again later in the between 15 and 21 weeks gestational age. Please let your physician know if you are interested in this testing. It will require an appointment with our serology technician. This is not an ultrasound performed by a physician in our office during a routine visit. SIGNS AND SYMPTOMS OF LABOR 1. Contractions every 10 minutes or more often 2. Clear, pink, or brownish fluid (water) leaking from vagina 3. Feeling that baby is pushing down, pressure 4. Low, dull backache 5. Cramps that feel like a period 6. Cramps with or without diarrhea If you notice any of the above symptoms, contact our office at [phone] and ask to speak with a nurse. After hours, you can call doctors registry at [phone] OR call [facility] at [phone] and ask to have the doctor proration clerk paged. If you consider this an emergency, dial 9-1-4 or go to your nearest emergency department. NEED HELP? Are you dealing with a violent or abusive relationship? Are you a victim of rape or sexual assult? Call [facility] ([facility] 24 hour Crisis Hotline: 581.658.2613 or 417-008-0082. Skin rash - Tinea versicolor Tinea versicolor is a common fungal infection of the skin. The fungus interferes with the normal pigmentation of the skin, resulting in small, discolored patches. These patches may be fiberglass autobody repairer or darker in color than the surrounding skin and most commonly affect the trunk and shoulders. Tinea versicolor (TIN-ee-uh nvh-ip-ZIM-ur), occurs most frequently in teens and young adults. Sun exposure may make tinea versicolor more apparent. Tinea versicolor, which is also called pityriasis versicolor, is not painful or contagious. But it can lead to emotional distress or self-consciousness. Antifungal creams, lotions or shampoos can help treat tinea versicolor. But even after successful treatment, skin color may remain uneven for several weeks or months. Tinea versicolor often recurs, especially in warm, humid weather. Tinea versicolor signs and symptoms include: Patches of skin discoloration, usually on the back, chest, neck and upper arms, which may appear fiberglass autobody repairer or darker than usual Mild itching Scaling When to see a doctor See your doctor if: Your skin doesn't improve with self-care measures The fungal infection returns The patches cover large areas of your body The fungus that causes tinea versicolor can be found on healthy skin. It only starts causing problems when the fungus overgrows. A number of factors may trigger this growth, including: Hot, humid weather Oily skin Hormonal changes Weakened immune system You're likely to start by first seeing your family doctor or a general practitioner. He or she may treat you or refer you to a specialist in skin disorders (building trades teacher). What you can do Preparing a list of questions beforehand can help you make the most of your time with your doctor. For tinea versicolor, some basic questions to ask your doctor include: How did I get tinea versicolor? What are other possible causes? Do I need any tests? Is tinea versicolor temporary or long lasting? What treatments are available, and which do you recommend? What side effects can I expect from treatment? How long will it take for my skin to return to normal? Can I do anything to help, such as avoid the sun at certain times or wear a specific sunscreen? I have other health conditions. How can I best manage them together? Is there a generic alternative to the medicine you're prescribing me? Do you have brochures or other printed material I can take home? What websites do you recommend? What to expect from your doctor Your doctor is likely to ask you a number of questions, such as: How long have you had these discolored areas on your skin? Have your symptoms been continuous or occasional? Have you had this or a similar condition in the past? Do the affected areas itch? Does anything seem to improve your symptoms? What, if anything, appears to worsen your symptoms? Your doctor can diagnose tinea versicolor by looking at it. If there's any doubt, he or she may take skin scrapings from the infected area and view them under a microscope. If tinea versicolor is severe or doesn't respond to cxnf-hnr-gpiczbm antifungal medicine, you may need a prescription-strength medication. Some of these medications are topical preparations that you rub on your skin. Others are drugs that you swallow. Examples include: Ciclopirox (Loprox, Penlac) cream, gel or shampoo Fluconazole (Diflucan) tablets or oral solution Itraconazole (Onmel, Sporanox) tablets, capsules or oral solution Ketoconazole (Ketoconazole, Nizoral, others) cream, gel or shampoo Selenium sulfide (Selsun) 2.5 percent lotion or shampoo Even after successful treatment, your skin color may remain uneven for several weeks, or even months. Also, the infection may return in hot, humid weather. In persistent cases, you may need to take a medication once or twice a month to prevent the infection from recurring. First try: 1. Apply Selsun (2.5% Selenium sulfide) shampoo as a lotion to your skin from the neck to the waist and arms. Leave on for about 20 minutes, and then take a shower. Shampoo your scalp with Selsun and leave lather on for 5 minutes. Use for 4 weeks If no improvement can add For a mild case of tinea versicolor, you can apply an dpjs-tbw-gxmxwla antifungal lotion, cream, ointment or shampoo. Most fungal infections respond well to these topical agents, which include: Clotrimazole (Lotrimin AF) cream or lotion Miconazole (Micaderm) cream Selenium sulfide (Selsun Blue) 1 percent lotion Terbinafine (Lamisil AT) cream or gel Zinc pyrithione soap When using creams, ointments or lotions, wash and dry the affected area. Then apply a thin layer of the product once or twice a day for at least two weeks. If you're using shampoo, rinse it off after waiting five to 10 minutes. If you don't see an improvement after four weeks, see your doctor. You may need a stronger medication. It also helps to protect your skin from the sun and artificial sources of UV light. Usually, the skin tone evens out eventually. To help prevent tinea versicolor from returning, your doctor can prescribe a skin or oral treatment that you use once or twice a month. You may need to use these just during warm and humid months. Preventive treatments include: Selenium sulfide (Selsun) 2.5 percent lotion or shampoo Ketoconazole (Ketoconazole, Nizoral, others) cream, gel, shampoo Itraconazole (Onmel, Sporanox) tablets, capsules or oral solution Fluconazole (Diflucan) tablets or oral solution References 1.Gary HEREDIA. Tinea versicolor. In: Gary's Clinical Advisor 2015: 5 Books in 1. [place] Kary Catapooolt; 2015. https://www.[employer] Accessed July 11, 2014. 2.Fabio DOZIER et al., eds. Yeast infections: Candidiasis, tinea (pityriasis) versicolor and malassezia (pityrosporum) folliculitis. In: William's Dermatology in General Medicine. 8th ed. [place]; 2011. http://www.Moy Univer.Konnektid. Accessed July 11, 2014. 3.Salma Paniagua et al. Interventions for the treatment of pityriasis versicolor. Asa Database of Systematic Reviews. http://ovidsp.Hubkick.ovid.com/sp-3 .14.0b/ovidweb.cgi. Accessed July 11, 2014. 4.AskMayoExpert. Superficial fungal infections. [place] [facility] [employer]; 2012. 5.Tinea versicolor. [place] [employer] Dermatology. www.aad.org/abspxppyjgq-y-jp-z /tdlroxly-fmp-lnpipriqkb/q---t /tinea-versicolor. Accessed July 11, 2014. 6.Tinea versicolor. The Merck Manual Professional Edition. http://www.100du.tvuals.com/pr ofessional/dermatologic_disord ers/fungal_skin_infections/tin ea_versicolor.html. Accessed July 11, 2014. MANUAL Your Guide to a Healthy manual is now on-line. Visit [facility]org/HealthyPre gnancyGuide to download your free copy documented in this encounter [facility] 02-14-2023 Miscellaneous Notes 22w4d Patient called in to the office. See below. States she felt her pulse throughout her entire body. It happened yesterday and once today. Will feel weak with it too. She wasn't feeling anxious at the time. She was working so she sat down, drank some water, and then felt better. She's eating and drinking normally throughout the day. Denies any other symptoms. Patient asking for provider proration clerk to address. Natali Watson RN Ob patient is 22w3d Left message to call office to further triage symptoms Reviewed. [employer] message sent to patient Patient 22w2d, seen in office today, referral to women's behavioral health placed. Does patient just need to schedule or there anything else that needs done? Scheduling number is [phone] documented in this encounter [facility] 02-13-2023 Miscellaneous Notes 2nd risk assessment form submitted 02/13/23 Mira No RN documented in this encounter [facility] 02-12-2023 Note HNO ID: [id number] Author: Chelsy Gutierrez APRN.AKASH Service: ? Author Type: Towel Stretcher Type: Progress Notes Filed: 02/12/2023 2:44 PM Note Text: Ramon-S: Yee Qiu is a 22 year old female who presents at 22w2d with JOHN:06/16/2023, by Last Menstrual Period for a routine visit. Feeling FM. Denies headache, visual changes, chest pain, shortness of breath, vaginal bleeding, leakage of fluid, or dysuria. Feeling well, no complaints. Frequent headaches, trying not to take tylenol everyday, previously took muscle relaxer - that did help. Round ligament pain. Increased anxiety and admits to depression. Denies SI/HI or thoughts of self harm. FOB not involved at this time and not getting along. Increased anxiety over and history of anxiety with no treatment. O: See flow sheet Gen: No apparent distress Abd: Gravid, nontender ASSESSMENT/PLAN: 1. Encounter for care in second trimester of first 2. 22 weeks gestation of P: 1) PTL precautions reviewed and when to call 2) RTO in 4 weeks 3) Tinea Versicolor information given for treatment. 4) Information given on headaches and treatment. Flexeril for acute treatment today. If no improvement to call for neuro consult. 5) Increased anxiety with depression, referral to behavioral health Chelsy Gutierrez APRN.CNM [facility] 02-12-2023 History of Present illness Narrative Ramon-S: Yee Qiu is a 22 year old female who presents at 22w2d with JOHN:06/16/2023, by Last Menstrual Period for a routine visit. Feeling FM. Denies headache, visual changes, chest pain, shortness of breath, vaginal bleeding, leakage of fluid, or dysuria. Feeling well, no complaints. Frequent headaches, trying not to take tylenol everyday, previously took muscle relaxer - that did help. Round ligament pain. Increased anxiety and admits to depression. Denies SI/HI or thoughts of self harm. FOB not involved at this time and not getting along. Increased anxiety over and history of anxiety with no treatment. O: See flow sheet Gen: No apparent distress Abd: Gravid, nontender ASSESSMENT/PLAN: 1. Encounter for care in second trimester of first 2. 22 weeks gestation of P: 1) PTL precautions reviewed and when to call 2) RTO in 4 weeks 3) Tinea Versicolor information given for treatment. 4) Information given on headaches and treatment. Flexeril for acute treatment today. If no improvement to call for neuro consult. 5) Increased anxiety with depression, referral to behavioral health Chelsy Gutierrez APRN.CNM documented in this encounter [facility] 02-12-2023 Instructions Chelsy Gutierrez APRN.CNM - 02/12/2023 9:17 AM EDT SEQUENTIAL SCREENINGS The [facility] offers sequential screenings for women who are interested in screenings for chromosomal abnormalities and certain defects during a . The sequential screen combines ultrasound and blood tests to determine the risk of chromosomal abnormalities, including Down's Syndrome (Trisomy 21) and Trisomy 18, as well as open neural tube defects including spina bifida. Ultrasound examination is performed between 11 weeks and 13 weeks gestational age. Blood tests are drawn after the ultrasound and again later in the between 15 and 21 weeks gestational age. Please let your physician know if you are interested in this testing. It will require an appointment with our serology technician. This is not an ultrasound performed by a physician in our office during a routine visit. SIGNS AND SYMPTOMS OF LABOR 1. Contractions every 10 minutes or more often 2. Clear, pink, or brownish fluid (water) leaking from vagina 3. Feeling that baby is pushing down, pressure 4. Low, dull backache 5. Cramps that feel like a period 6. Cramps with or without diarrhea If you notice any of the above symptoms, contact our office at [phone] and ask to speak with a nurse. After hours, you can call doctors registry at [phone] OR call [facility] at [phone] and ask to have the doctor proration clerk paged. If you consider this an emergency, dial 9-1-5 or go to your nearest emergency department. NEED HELP? Are you dealing with a violent or abusive relationship? Are you a victim of rape or sexual assult? Call [facility] ([place]) 24 hour Crisis Hotline: 201.167.6416 or 362-089-6153. MANUAL Your Guide to a Healthy manual is now on-line. Visit [email or web address]org/HealthyPre gnancyGuide to download your free copy Headache Prevention: 1) Magnesium Citrate 200mg by mouth twice daily 2) Riboflavin 400mg by mouth once daily 3) intensive care specialist 4) Massage therapy 6) For acute headache can take 1 Flexeril, 2 Tylenol, Coffee, Gatorade and cup of coffee.If taking the unisom add that if not taking take benadryl Skin rash - Tinea versicolor Tinea versicolor is a common fungal infection of the skin. The fungus interferes with the normal pigmentation of the skin, resulting in small, discolored patches. These patches may be fiberglass autobody repairer or darker in color than the surrounding skin and most commonly affect the trunk and shoulders. Tinea versicolor (TIN-ee-uh qdl-hn-XCR-ur), occurs most frequently in teens and young adults. Sun exposure may make tinea versicolor more apparent. Tinea versicolor, which is also called pityriasis versicolor, is not painful or contagious. But it can lead to emotional distress or self-consciousness. Antifungal creams, lotions or shampoos can help treat tinea versicolor. But even after successful treatment, skin color may remain uneven for several weeks or months. Tinea versicolor often recurs, especially in warm, humid weather. Tinea versicolor signs and symptoms include: Patches of skin discoloration, usually on the back, chest, neck and upper arms, which may appear fiberglass autobody repairer or darker than usual Mild itching Scaling When to see a doctor See your doctor if: Your skin doesn't improve with self-care measures The fungal infection returns The patches cover large areas of your body The fungus that causes tinea versicolor can be found on healthy skin. It only starts causing problems when the fungus overgrows. A number of factors may trigger this growth, including: Hot, humid weather Oily skin Hormonal changes Weakened immune system You're likely to start by first seeing your family doctor or a general practitioner. He or she may treat you or refer you to a specialist in skin disorders (building trades teacher). What you can do Preparing a list of questions beforehand can help you make the most of your time with your doctor. For tinea versicolor, some basic questions to ask your doctor include: How did I get tinea versicolor? What are other possible causes? Do I need any tests? Is tinea versicolor temporary or long lasting? What treatments are available, and which do you recommend? What side effects can I expect from treatment? How long will it take for my skin to return to normal? Can I do anything to help, such as avoid the sun at certain times or wear a specific sunscreen? I have other health conditions. How can I best manage them together? Is there a generic alternative to the medicine you're prescribing me? Do you have brochures or other printed material I can take home? What websites do you recommend? What to expect from your doctor Your doctor is likely to ask you a number of questions, such as: How long have you had these discolored areas on your skin? Have your symptoms been continuous or occasional? Have you had this or a similar condition in the past? Do the affected areas itch? Does anything seem to improve your symptoms? What, if anything, appears to worsen your symptoms? Your doctor can diagnose tinea versicolor by looking at it. If there's any doubt, he or she may take skin scrapings from the infected area and view them under a microscope. If tinea versicolor is severe or doesn't respond to qdyy-zvc-dijjjgt antifungal medicine, you may need a prescription-strength medication. Some of these medications are topical preparations that you rub on your skin. Others are drugs that you swallow. Examples include: Ciclopirox (Loprox, Penlac) cream, gel or shampoo Fluconazole (Diflucan) tablets or oral solution Itraconazole (Onmel, Sporanox) tablets, capsules or oral solution Ketoconazole (Ketoconazole, Nizoral, others) cream, gel or shampoo Selenium sulfide (Selsun) 2.5 percent lotion or shampoo Even after successful treatment, your skin color may remain uneven for several weeks, or even months. Also, the infection may return in hot, humid weather. In persistent cases, you may need to take a medication once or twice a month to prevent the infection from recurring. First try: 1. Apply Selsun (2.5% Selenium sulfide) shampoo as a lotion to your skin from the neck to the waist and arms. Leave on for about 20 minutes, and then take a shower. Shampoo your scalp with Selsun and leave lather on for 5 minutes. Use for 4 weeks If no improvement can add For a mild case of tinea versicolor, you can apply an ohta-ylk-efgdnjz antifungal lotion, cream, ointment or shampoo. Most fungal infections respond well to these topical agents, which include: Clotrimazole (Lotrimin AF) cream or lotion Miconazole (Micaderm) cream Selenium sulfide (Selsun Blue) 1 percent lotion Terbinafine (Lamisil AT) cream or gel Zinc pyrithione soap When using creams, ointments or lotions, wash and dry the affected area. Then apply a thin layer of the product once or twice a day for at least two weeks. If you're using shampoo, rinse it off after waiting five to 10 minutes. If you don't see an improvement after four weeks, see your doctor. You may need a stronger medication. It also helps to protect your skin from the sun and artificial sources of UV light. Usually, the skin tone evens out eventually. To help prevent tinea versicolor from returning, your doctor can prescribe a skin or oral treatment that you use once or twice a month. You may need to use these just during warm and humid months. Preventive treatments include: Selenium sulfide (Selsun) 2.5 percent lotion or shampoo Ketoconazole (Ketoconazole, Nizoral, others) cream, gel, shampoo Itraconazole (Onmel, Sporanox) tablets, capsules or oral solution Fluconazole (Diflucan) tablets or oral solution References 1.Gary HEREDIA. Tinea versicolor. In: Gary's Clinical Advisor 2015: 5 Books in 1. [place] Kary Sánchez; 2015. [email or web address] KK.[email or web address]. Accessed July 11, 2014. 2.samia Lemon al., eds. Yeast infections: Candidiasis, tinea (pityriasis) versicolor and malassezia (pityrosporum) folliculitis. In: William's Dermatology in General Medicine. 8th ed. [place]; 2011. http://www.InView Technology. Accessed July 11, 2014. 3.Salma Paniagua et al. Interventions for the treatment of pityriasis versicolor. Almo Database of Systematic Reviews. http://ovidsp.Hubkick.Spark Labs.com/sp-3 .14.0b/ovidweb.cgi. Accessed July 11, 2014. 4.AskMayoExpert. Superficial fungal infections. [facility].: [facility]; 2011. 5.Tinea versicolor. [place] Academy of Dermatology. www.aad.org/wqqhgbnxjak-x-yl-z /nxxlsyjb-fan-dtmibupaxi/q---t /tinea-versicolor. Accessed July 11, 2014. 6.Tinea versicolor. The Merck Manual Professional Edition. http://www.MyHeritage.Konnektid/pr ofessional/dermatologic_disord ers/fungal_skin_infections/tin ea_versicolor.html. Accessed July 11, 2014. documented in this encounter [facility] 02-11-2023 Miscellaneous Notes FaceAlertat message to pt. Will await further response. Yary Salguero LPN Does patient have a psychiatrist for care? If not, recommend making appointment with women's behavioral health for virtual visit and to discuss management. Consult placed. Can discuss at her visit as well. If anything worsens she can go to the ED if needed. Chelsy Gutierrez APRN.CNM Patient 22w0d calling with complaints of ongoing panic attacks since Friday. Patient states she is having 2-3 panic attacks per day and they are lasting around 5 minutes. Per patient nothing is triggering the attacks and it does help to do slow deep breaths when it occurs. Patient experiences heart racing and sweating when attacks occur. Denies any depression or thought of harming herself or others. Patient does have an appointment on 02/12 for centering. Christy Serrano RN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 state, incidental Need for vaccination Need for prophylactic vaccination and inoculation against unspecified single disease Encounter for supervision of normal first in third trimester Supervision of normal first [facility] Diagnosis Tinea corporis- Primary Dermatophytosis of the body Encounter for supervision of normal first in third trimester Supervision of normal first with care elsewhere, antepartum History of anxiety Personal history of other mental disorder Family history of spina bifida Family history of congenital anomalies Abnormal glucose complicating Abnormal maternal glucose tolerance, complicating , childbirth, or the puerperium, unspecified as to episode of care 31 weeks gestation of state, incidental documented in this encounter [facility] for referral (narrative)* Diagnostic Procedure Only (Routine) - Authorized Specialty Diagnoses / Procedures Referred By Ingrid gordon Referred To Contact [facility] Diagnoses Encounter for screening of mother Family history of cleft lip and palate Family history of neural tube defect Procedures NUCHAL TRANSLUCENCY WHI US NUCHAL TRANSLUCENCY 1ST GESTATION Regino Tuttle MD [address] [place] [address] [place] [address] Referral ID Status Reason Start Date Expiration Date Visits Requested Visits Authorized [id number] Authorized Auto-Generat ed Referral 12/05/2022 12/05/2023 1 1 [facility] for referral (narrative)* Diagnostic Procedure Only (Routine) - Authorized Specialty Diagnoses / Procedures Referred By Ingrid gordon Referred To Contact [facility] Diagnoses Encounter for care in second trimester of first Procedures OBSTETRIC ULTRASOUND WHI US PREG UTERUS AFTER 1ST TRIMEST GESTATION Jesi TillmanFABRIZIO [address] [place] [address] [facility] [address] [place] [address] Referral ID Status Reason Start Date Expiration Date Visits Requested Visits Authorized [id number] Authorized Auto-Generat ed Referral 12/11/2022 12/11/2023 1 1 [facility] Summary Purpose Family History No Family History Records FoundNo Family History Records FoundNo Family History Records FoundNo Family History Records FoundNo Family History Records FoundNo Family History Records Found Advance Directives No Advanced Directives Records FoundNo Advanced Directives Records FoundNo Advanced Directives Records FoundNo Advanced Directives Records FoundNo Advanced Directives Records FoundNo Advanced Directives Records Found Health Concerns Problem Noted Date Diagnosed Date [facility] Education - COMMON 12/09/2022 Problem Noted Date Diagnosed Date [facility] CC Education - COMMON 12/09/2022 Problem Noted Date Diagnosed Date [facility] CC Education - COMMON 12/09/2022 Problem Noted Date Diagnosed Date [facility] CC Education - COMMON 12/09/2022 Problem Noted Date Diagnosed Date [facility] CC Education - COMMON 12/09/2022 Problem Noted Date Diagnosed Date [facility] CC Education - COMMON 12/09/2022 Problem Noted Date Diagnosed Date [facility] CC Education - COMMON 12/09/2022 Problem Noted Date Diagnosed Date [facility] CC Education - COMMON 12/09/2022 Problem Noted Date Diagnosed Date [facility] CC Education - COMMON 12/09/2022 Problem Noted Date Diagnosed Date [facility] CC Education - COMMON 12/09/2022 Problem Noted Date Diagnosed Date [facility] CC Education - COMMON 12/09/2022 Problem Noted Date Diagnosed Date [facility] CC Education - COMMON 12/09/2022 Additional Source Comments INFORMATION SOURCE (unrecogn ized section and content) DATE CREATED AUTHOR AUTHOR'S ORGANIZ ATION 02/28/2021 [facility] DATE CREATED AUTHOR AUTHOR'S ORGANIZ ATION 02/03/2022 [facility] DATE CREATED AUTHOR AUTHOR'S ORGANIZ ATION 04/06/2023 [facility] DATE CREATED AUTHOR AUTHOR'S ORGANIZ ATION 05/01/2023 [facility] DATE CREATED AUTHOR AUTHOR'S JESS ATION 05/01/2023 [facility] Source Comments (unrecognize d section and content) In the event this informatio n is protected by the Federal Confidentiality of Alcohol and Drug Abuse Patient Records regulations: The Federal rules restrict any use of the information to criminally investigate or prosecute any alcohol or drug abuse patient.[facility] the event this information is protected by the Federal Confidentiality of Alcohol and Drug Abuse Patient Records regulations: The Federal rules restrict any use of the information to criminally investigate or prosecute any alcohol or drug abuse patient.[facility] the event this information is protected by the Federal Confidentiality of Alcohol and Drug Abuse Patient Records regulations: The Federal rules restrict any use of the information to criminally investigate or prosecute any alcohol or drug abuse patient.[facility] the event this information is protected by the Federal Confidentiality of Alcohol and Drug Abuse Patient Records regulations: The Federal rules restrict any use of the information to criminally investigate or prosecute any alcohol or drug abuse patient.[facility] the event this information is protected by the Federal Confidentiality of Alcohol and Drug Abuse Patient Records regulations: The Federal rules restrict any use of the information to criminally investigate or prosecute any alcohol or drug abuse patient.[facility] the event this information is protected by the Federal Confidentiality of Alcohol and Drug Abuse Patient Records regulations: The Federal rules restrict any use of the information to criminally investigate or prosecute any alcohol or drug abuse patient.[facility] the event this information is protected by the Federal Confidentiality of Alcohol and Drug Abuse Patient Records regulations: The Federal rules restrict any use of the information to criminally investigate or prosecute any alcohol or drug abuse patient.[facility] the event this information is protected by the Federal Confidentiality of Alcohol and Drug Abuse Patient Records regulations: The Federal rules restrict any use of the information to criminally investigate or prosecute any alcohol or drug abuse patient.[facility] the event this information is protected by the Federal Confidentiality of Alcohol and Drug Abuse Patient Records regulations: The Federal rules restrict any use of the information to criminally investigate or prosecute any alcohol or drug abuse patient.[facility] Hospital[facility] the event this information is protected by the Federal Confidentiality of Alcohol and Drug Abuse Patient Records regulations: The Federal rules restrict any use of the information to criminally investigate or prosecute any alcohol or drug abuse patient.[facility] Hospital[facility] the event this information is protected by the Federal Confidentiality of Alcohol and Drug Abuse Patient Records regulations: The Federal rules restrict any use of the information to criminally investigate or prosecute any alcohol or drug abuse patient.[facility] Hospital[facility] the event this information is protected by the Federal Confidentiality of Alcohol and Drug Abuse Patient Records regulations: The Federal rules restrict any use of the information to criminally investigate or prosecute any alcohol or drug abuse patient.[facility] Hospital[facility] the event this information is protected by the Federal Confidentiality of Alcohol and Drug Abuse Patient Records regulations: The Federal rules restrict any use of the information to criminally investigate or prosecute any alcohol or drug abuse patient.[facility] Hospital[facility] the event this information is protected by the Federal Confidentiality of Alcohol and Drug Abuse Patient Records regulations: The Federal rules restrict any use of the information to criminally investigate or prosecute any alcohol or drug abuse patient.[facility] Hospital[facility] the event this information is protected by the Federal Confidentiality of Alcohol and Drug Abuse Patient Records regulations: The Federal rules restrict any use of the information to criminally investigate or prosecute any alcohol or drug abuse patient.[facility] Hospital[facility] the event this information is protected by the Federal Confidentiality of Alcohol and Drug Abuse Patient Records regulations: The Federal rules restrict any use of the information to criminally investigate or prosecute any alcohol or drug abuse patient.[facility] Hospital[facility] the event this information is protected by the Federal Confidentiality of Alcohol and Drug Abuse Patient Records regulations: The Federal rules restrict any use of the information to criminally investigate or prosecute any alcohol or drug abuse patient.[facility] HospitalIn the event this information is protected by the Federal Confidentiality of Alcohol and Drug Abuse Patient Records regulations: The Federal rules restrict any use of the information to criminally investigate or prosecute any alcohol or drug abuse patient.[facility] HospitalIn the event this information is protected by the Federal Confidentiality of Alcohol and Drug Abuse Patient Records regulations: The Federal rules restrict any use of the information to criminally investigate or prosecute any alcohol or drug abuse patient.[facility] HospitalIn the event this information is protected by the Federal Confidentiality of Alcohol and Drug Abuse Patient Records regulations: The Federal rules restrict any use of the information to criminally investigate or prosecute any alcohol or drug abuse patient.[facility] Reason for Visit (unrecogniz ed section and content) Reason Comments Initial OB Visit Transfer from [facility] Reason Comments US Specialty Diagnoses / Procedures Referred By Ingrid gordon Referred To Contact [facility] Diagnoses Encounter for screening of mother Family history of cleft lip and palate Family history of neural tube defect Procedures NUCHAL TRANSLUCENCY WHI US NUCHAL TRANSLUCENCY 1ST GESTATION Regino Tuttle MD [address] [place] [address] [facility] [address] [place] [address] Referral ID Status Reason Start Date Expiration Date V isits Requested Visits Authorized [id number] Closed Auto-Generate d Referral 12/05/2022 12/05/2023 1 1 Reason Onset Date Comments Care 01/02/2023 Reason Onset Date Comments Care 01/14/2023 Immunizations 01/14/2023 Flu vaccination Specialty Diagnoses / Procedures Referred By Ingrid gordon Referred To Contact [facility] Diagnoses Encounter for care in second trimester of first Procedures OBSTETRIC ULTRASOUND WHI US PREG UTERUS AFTER 1ST TRIMEST GESTATION Jesi Tillman, [employer] ARCHITECT SPECIALIST [address] [place] [address] [facility] [place] [address] Referral ID Status Reason Start Date Expiration Date V isits Requested Visits Authorized [id number] Closed Auto-Generate d Referral 12/11/2022 12/11/2023 1 1 Reason Comments Patient Question Reason Comments Anxiety Reason Onset Date Comments Care 02/12/2023 Reason Comments PRAF Reason Onset Date Comments Care 03/12/2023 Reason Onset Date Comments Care 03/26/2023 Reason Onset Date Comments Care 04/16/2023 Reason Comments OB HYATT Reason Comments Tip Tester - Other PRAF Care Teams (unrecognized sec tion and content) Voltage Inspector Relationship Specialty Start Date End Date Cleve Turcios PA-C [address] [place] [address] PCP - General 11/28/22 Voltage Inspector Relationship Specialty Start Date End Date Cleve Turcios PA-C [address] [place] [address] PCP - General 11/28/22 Voltage Inspector Relationship Specialty Start Date End Date Cleve Turcios PA-C [address] [place] [address] PCP - General 11/28/22 Voltage Inspector Relationship Specialty Start Date End Date Cleve Chaney PA-C PCP - General 11/28/22 Voltage Inspector Relationship Specialty Start Date End Date Cleve Chaney PA-C PCP - General 11/28/22 Voltage Inspector Relationship Specialty Start Date End Date Cleve Chaney PA-C PCP - General 11/28/22 Voltage Inspector Relationship Specialty Start Date End Date Cleve Chaney PA-C PCP - General 11/28/22 Voltage Inspector Relationship Specialty Start Date End Date Cleve Chaney PA-C PCP - General 11/28/22 Voltage Inspector Relationship Specialty Start Date End Date Cleve Chaney PA-C PCP - General 11/28/22 Voltage Inspector Relationship Specialty Start Date End Date Cleve Chaney PA-C PCP - General 11/28/22 Voltage Inspector Relationship Specialty Start Date End Date Cleve Chaney PA-C PCP - General 11/28/22 Voltage Inspector Relationship Specialty Start Date End Date Cleve Chaney PA-C PCP - General 11/28/22 Voltage Inspector Relationship Specialty Start Date End Date Cleve Chaney PA-C PCP - General 11/28/22 Voltage Inspector Relationship Specialty Start Date End Date Cleve Chaney PA-C PCP - General 11/28/22 Voltage Inspector Relationship Specialty Start Date End Date Cleve Chaney PA-C PCP - General 11/28/22 Voltage Inspector Relationship Specialty Start Date End Date Cleve Chaney PA-C PCP - General 11/28/22 FOR RECORDS PERTAINING TO PATIENTS WHO ARE OR HAVE BEEN ENROLLED IN A CHEMICAL DEPENDENCY/SUBSTANCEABUSE PROGRAM, SOME INFORMATION MAY BE OMITTED. This clinical summary was aggregated from multiple sources. Caution should be exercised in using it in the provision of clinical care. This summary normalizes information from multiple sources, and as a consequence, information in this document may materially change the coding, format and clinical context of patient data. In addition, data may be omitted in some cases. CLINICAL DECISIONS SHOULD BE BASED ON THE PRIMARY CLINICAL RECORDS. [employer] [facility]. provides no warranty or guarantee of the accuracy or completeness of information in this document.
[2023-05-02 22:36] VITALS: BP 120/71; PULSE 88
[2023-05-02 22:37] VITALS: PULSE 95; TEMP 37.4; O2SAT 98
[2023-05-02 23:08] LABS: ROM Internal Control Test YES-OK TO RESULT pt. (Internal QC); ROM Patient Test Negative (Negative); Record Kit Lot#, ROM+ K1374
--- NOTE | 2023-05-16 16:43 | OB.TRI.PN ---
Progress Notes Progress Note: G1PO presents at 35w with complaint of leakage of fluid. Good movement, no vaginal bleeding. Laboratory Studies: Laboratory Tests 05/02/23 Range/Units 22:30 Vag Amniotic Fld Detect Negative (Negative) NST reactive 145, moderate, accels, no decels Assessment & Plan (1) Vaginal discharge: PLAN: Plan ROM plus negative no signs of labor D/C home
== END 2023-05-02 23:25 | disposition home or self-care (01) ==
LOC: WPOUT 22:17 → WP 22:19
PROVIDERS: Referring Provider Advanced Practice Midwife; Visit Provider Advanced Practice Midwife
DX: O99.891 Other specified diseases and conditions complicating pregnancy (principal); N89.8 Other specified noninflammatory disorders of vagina; Z3A.35 35 weeks gestation of pregnancy
CPT/HCPCS: 59050; 84112; 99221; G0378

== ENCOUNTER 2023-05-08 13:50 | Outpatient (CLI) | payer MEDICAID, SELFPAY ==
[2023-05-08 14:02] VITALS: BP 119/82; PULSE 98
[2023-05-08 14:21] VITALS: PULSE 91; TEMP 36.2; O2SAT 98
[2023-05-08 14:34] VITALS: BMI 24.3
[2023-05-08] MEDS: Acetaminophen 500 MG Tablet 1000 MG PO (15:33)
[2023-05-08 15:47] LABS: Color, Urine SEE COMMENT BELOW (Yellow); Glucose, Dipstick Normal (Normal); Ketone-Dipstick Negative (Negative); Leukocyte Esterase-Dipstick 100 /ul (Negative); Nitrite-Dipstick Negative (Negative); Occult Blood-Urine 250 /ul (Negative); Protein-Dipstick 100 mg/dl (Negative); Urine Bilirubin Dipstick Negative (Negative); Urine Clarity Cloudy (Clear); Urine Urobilinogen Normal (Normal)
[2023-05-08 16:46] VITALS: BP 129/80; PULSE 80; O2SAT 98
[2023-05-08 16:47] VITALS: TEMP 36.5
--- NOTE | 2023-05-08 19:19 | OB.TRI.NOTE ---
HPI - General General Date of Service: 05/08/23 HPI Narrative TENZIN QIU, is a 22 F who presents with low back pain. PFSH [facility] Medical History (Updated 05/08/23 @ 19:[address] Jostin Burnett MD) Cheek injury Home Medications vitamins no.144-folic acid 400 mcg chewable tablet () 1 tab PO DAILY 01/09/23 [History Last Taken 05/08/23] famotidine 20 mg tablet 20 mg PO DAILY 04/25/23 [History Last Taken 05/08/23] ferrous sulfate 325 mg (65 mg iron) tablet (FeroSul) 65 mg PO DAILY Anemia 05/08/23 [History Last Taken 05/08/23] Allergy/AdvReac Type Severity Reaction Status Date / Time No Known Allergies Allergy Verified 05/02/23 23:05 Social History Smoking Status: Never smoker NST FHR Rate Baby A Baseline: 115 Variability:: Moderate Accelerations:: 15 x 15 Decelerations:: None NST Reactive:: Yes Uterine Activity:: Irregular Assessment & Plan (1) 34 weeks gestation of : PLAN: Plan Reactive NST for threatened PTL
== END 2023-05-08 17:35 | disposition home or self-care (01) ==
LOC: WPOUT 13:53 → WP 13:53
PROVIDERS: Obstetrics & Gynecology; Referring Provider Obstetrics & Gynecology; Visit Provider Obstetrics & Gynecology
DX: O99.891 Other specified diseases and conditions complicating pregnancy (principal); M54.50 Low back pain, unspecified; Z3A.34 34 weeks gestation of pregnancy
CPT/HCPCS: 59025; 59050; 81002; 99221; G0378

== ENCOUNTER 2023-05-10 17:55 | Outpatient (CLI) | payer MEDICAID, SELFPAY ==
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
[2023-05-10 18:08] VITALS: BP 118/81; PULSE 86; TEMP 36.8
[2023-05-10 18:12] VITALS: BMI 24.0
--- NOTE | 2023-05-10 18:17 | OB.TRI.NOTE ---
HPI - General HPI Narrative TENZIN QIU, is a 22 F who presents for passing a quarter size blood clot and seeing dark brown spotting after wiping. Denies any cramping or contractions. Positive movement. Denies any recent intercourse. [facility] Medical History (Updated 05/10/23 @ 20:35 by Naomi Flores CNM) Cheek injury Home Medications vitamins no.144-folic acid 400 mcg chewable tablet () 1 tab PO DAILY 01/09/23 [History Last Taken 05/10/23 08:00 1 TAB] famotidine 20 mg tablet 20 mg PO DAILY 04/25/23 [History Last Taken 05/10/23 08:00 20 mg] ferrous sulfate 325 mg (65 mg iron) tablet (FeroSul) 65 mg PO DAILY Anemia 05/08/23 [History Last Taken 05/09/23 19:00 65 mg] magnesium citrate (Citrate of Magnesia oral) 250 ml PO DAILY 05/10/23 [History Last Taken 05/10/23 08:00 250 mL] pyridoxine (vitamin B6) 25 mg tablet 25 mg PO DAILY 05/10/23 [History Last Taken 05/10/23 08:00 25 mg] Allergy/AdvReac Type Severity Reaction Status Date / Time No Known Allergies Allergy Verified 05/10/23 18:13 Social History Smoking Status: Never smoker ROS Eyes Eyes: Denies blurry vision Cardiovascular Cardiovascular: Reports none; Denies chest pain at rest, chest pain with activity or dizziness Respiratory/Chest Respiratory/Chest: Denies cough or dyspnea Gastrointestinal Gastrointestinal: Reports none and other; Denies diarrhea or vomiting Genitourinary Genitourinary: Denies dysuria Musculoskeletal Musculoskeletal: Reports none Integumentary Integumentary: Reports none; Denies rash Neurologic Neurologic: Denies dizziness, headache(s) or other visual disturbances Psychiatric Psychiatric: Reports none Physical Exam Const alert and no apparent distress General Appearance: cooperative Orientation / Consciousness: awake Exam Limitations: no limitations HEENT normocephalic Eyes General Eye: normal appearance of both eyes Neck full ROM Chest inspection of chest normal Resp normal respiratory effort and normal air movement Effort and Inspection: symmetric chest movement Auscultation: clear to auscultation bilaterally Cardio regular rate GI soft to palpation, non-tender and non-distended Inspection: and other Back/Spine normal ROM Extremity full ROM, normal capillary refill and no calf tenderness Skin no rashes or lesions noted Neuro oriented x3 and CN's II-XII intact bilaterally Psych mental status grossly normal NST FHR Rate Baby A Baseline: 130 Variability:: Moderate Accelerations:: 15 x 15 Decelerations:: None NST Reactive:: Yes FHR Category:: Category I Uterine Activity:: Irregular Assessment & Plan (1) Vaginal discharge: (2) 34 weeks gestation of : (3) Vaginal spotting: PLAN: Plan No active bleeding CE 1cm / thick/ high- no change after extended monitoring Minimal amount of old, dark blood on glove after exam NST reactive, Cat. 1 tracing Desires discharge home Follow up in office this week
[2023-05-10 19:17] VITALS: TEMP 37.1; O2SAT 98
[2023-05-10 19:19] VITALS: PULSE 86; O2SAT 98
[2023-05-10 19:20] VITALS: BP 123/81; PULSE 80
== END 2023-05-10 20:26 | disposition home or self-care (01) ==
LOC: WPOUT 17:59 → WP 17:59
PROVIDERS: Referring Provider Advanced Practice Midwife; Visit Provider Advanced Practice Midwife
DX: O99.891 Other specified diseases and conditions complicating pregnancy (principal); N89.8 Other specified noninflammatory disorders of vagina; Z3A.34 34 weeks gestation of pregnancy; O26.853 Spotting complicating pregnancy, third trimester
CPT/HCPCS: 59025; 59050; 99221; G0378

== ENCOUNTER 2023-05-13 10:22 | Outpatient (CLI) | payer MEDICAID, SELFPAY ==
[2023-05-13] VITALS (11 sets, daily range): BP systolic 116–124; BP diastolic 72–81; PULSE 75–95; BMI 23.0
--- OUTSIDE RECORDS SUMMARY | 2023-05-13 11:32 | XMS RPT_ITS | CCD ---
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 Diagnoses / Procedures Referred By Ingrid gordon Referred To Contact [facility] Diagnoses Encounter for screening of mother Family history of cleft lip and palate Family history of neural tube defect Procedures NUCHAL TRANSLUCENCY WHI US NUCHAL TRANSLUCENCY 1ST GESTATION [place] Tuttle MD [address] [place] [address] [facility] [address] [place] [address] Referral ID Status Reason Start Date Expiration Date V isits Requested Visits Authorized [id number] Closed Auto-Generate d Referral 12/05/2022 12/05/2023 1 1 Reason Onset Date Comments Care 01/02/2023 Reason Onset Date Comments Care 01/14/2023 Immunizations 01/14/2023 Flu vaccination Specialty Diagnoses / Procedures Referred By Ingrid gordon Referred To Contact [facility] Diagnoses Encounter for care in second trimester of first Procedures OBSTETRIC ULTRASOUND WHI US PREG UTERUS AFTER 1ST TRIMEST GESTATION Jesi Tillman, [employer].HYDRO TECHNICIAN [address] [place] [address] [facility] [place] [place] [address] Referral ID Status Reason Start Date Expiration Date V isits Requested Visits Authorized [id number] Closed Auto-Generate d Referral 12/11/2022 12/11/2023 1 1 Reason Comments Patient Question Reason Comments Anxiety Reason Onset Date Comments Care 02/12/2023 Reason Comments PRAF Reason Onset Date Comments Care 03/12/2023 Reason Onset Date Comments Care 03/26/2023 Reason Onset Date Comments Care 04/16/2023 Reason Comments OB HYATT Reason Comments Manager Domestic - Other PRAF Care Teams (unrecognized sec tion and content) 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 Relationship Specialty Start Date End Date Cleve Turcios PA-C [address] [place] [address] PCP - General 11/28/22 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 Relationship Specialty Start Date End Date Cleve Turcios PA-C [address] [place] [address] PCP - General 11/28/22 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 Relationship Specialty Start Date End Date Cleve Turcios PA-C [address] [place] [address] PCP - General 11/28/22 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 Relationship Specialty Start Date End Date Cleve Chaney PA-C PCP - General 11/28/22 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 Relationship Specialty Start Date End Date Cleve Chaney PA-C PCP - General 11/28/22 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 Relationship Specialty Start Date End Date Cleve Chaney PA-C PCP - General 11/28/22 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 Relationship Specialty Start Date End Date Cleve Chaney PA-C PCP - General 11/28/22 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 Relationship Specialty Start Date End Date Cleve Chaney PA-C PCP - General 11/28/22 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 Relationship Specialty Start Date End Date Cleve Chaney PA-C PCP - General 11/28/22 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 Relationship Specialty Start Date End Date Cleve Chaney PA-C PCP - General 11/28/22 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 Relationship Specialty Start Date End Date Cleve Chaney PA-C PCP - General 11/28/22 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 Relationship Specialty Start Date End Date Cleve Chaney PA-C PCP - General 11/28/22 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 Relationship Specialty Start Date End Date Cleve Chaney PA-C PCP - General 11/28/22 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 Relationship Specialty Start Date End Date Cleve Chaney PA-C PCP - General 11/28/22 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 Relationship Specialty Start Date End Date Cleve Chaney PA-C PCP - General 11/28/22 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 Relationship Specialty Start Date End Date Cleve [...] BE BASED ON THE PRIMARY CLINICAL RECORDS. [employer] [facility]. provides no warranty or guarantee of the accuracy or completeness of information in this document.
[2023-05-13] MEDS: Acetaminophen 500 MG Tablet 1000 MG PO (11:35)
[2023-05-13 12:05] LABS: Hematocrit 31.7 % (37-47); Hemoglobin 10.9 g/dL (12.0-15.0); Mean Corp Hgb Conc 34.4 g/dL (32-36); Mean Corpuscular Hgb 31.1 pg (27.0-32.0); Mean Corpuscular Volume 90.6 fL (81-99); Platelet Count 183 K/mm3 (150-450); RBC Distribution Width CV 12.7 % (11.6-14.6); RBC Distribution Width SD 41.4 fl (35.1-43.9); White Blood Count 9.4 K/mm3 (4.4-11.0)
[2023-05-13 12:09] LABS: AST(SGOT) 15 U/L (15-37); Alanine Aminotransfer ALT/SGPT 19 U/L (13-56); Creatinine, Serum 0.44 mg/dL (0.55-1.02); EST Glomerular Filtration Rate 190 mL/min (>60); Est Glom Filt Rate - Afr Amer 229 mL/min (>60); Estimated Creatinine Clearance 159.96 ml/min; Uric Acid 4.2 mg/dL (2.6-6.0)
[2023-05-13 12:20] LABS: Protein, Urine (Random) < 6.0 mg/dL (<11.9)
--- NOTE | 2023-05-13 14:04 | OB.TRI.HP_ITS ---
HPI - General General Date of Service: 05/13/23 HPI Narrative TENZIN QIU, is a 22 F who presents with headache. Maternal Data Information Final JOHN: 06/16/[birth year] Gestational age: 35&1 [facility] Medical History (Updated 05/13/23 @ 14:[address] Jostin Burnett MD) Cheek injury Home Medications vitamins no.144-folic acid 400 mcg chewable tablet () 1 tab PO DAILY 01/09/23 [History Last Taken 05/10/23 08:00 1 TAB] famotidine 20 mg tablet 20 mg PO DAILY 04/25/23 [History Last Taken 05/10/23 08:00 20 mg] ferrous sulfate 325 mg (65 mg iron) tablet (FeroSul) 65 mg PO DAILY Anemia 05/08/23 [History Last Taken 05/09/23 19:00 65 mg] magnesium citrate (Citrate of Magnesia oral) 250 ml PO DAILY 05/10/23 [History Last Taken 05/10/23 08:00 250 mL] pyridoxine (vitamin B6) 25 mg tablet 25 mg PO DAILY 05/10/23 [History Last Taken 05/10/23 08:00 25 mg] Allergy/AdvReac Type Severity Reaction Status Date / Time No Known Allergies Allergy Verified 05/10/23 18:13 Social History Smoking Status: Never smoker NST FHR Rate Baby A Baseline: 120 Variability:: Moderate Accelerations:: 15 x 15 Decelerations:: None Uterine Activity:: quiet Assessment & Plan (1) Headache in : QUALIFIERS: Trimester: third trimester Qualified Code(s): O26.893 - Other specified related conditions, third trimester; R51.9 - Headache, unspecified PLAN: Plan reactive NST & normal labs for headache in
== END 2023-05-13 13:23 | disposition home or self-care (01) ==
LOC: WPOUT 10:23 → WP 10:23
PROVIDERS: Referring Provider Obstetrics & Gynecology; Visit Provider Obstetrics & Gynecology
DX: O26.893 Other specified pregnancy related conditions, third trimester (principal); R51.9 Headache, unspecified; Z3A.00 Weeks of gestation of pregnancy not specified
CPT/HCPCS: 36415; 59025; 59050; 82565; 82570; 84156; 84450; 84460; 84550; 85027; 99221; G0378

== ENCOUNTER 2023-06-08 21:06 | Outpatient (CLI) | payer MEDICAID, SELFPAY ==
[2023-05-13 10:40] VITALS: TEMP 36.6; O2SAT 99
--- OUTSIDE RECORDS SUMMARY | 2023-06-08 21:19 | XMS RPT_ITS | CCD ---
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 is 12 weeks 3 days by dates. New OB appointment scheduled December 11. Transferring care from Dr. Cuba in [place]. She had 2 visits there. She states that she did have the panorama but did not have the nuchal ultrasound. Panorama was noted in Care Everywhere. Patient would like to have nuchal ultrasound. Please advise if she can have this done. She states she does have a nephew with spina bifida and cleft lip and palate documented in this encounter [facility] 07-09-2022 Note [facility] [id number] , [place] [address] PT OP Discharge Summary : [id number] Signed Name: YEE QIU MRUN: [id number] : 2000 Age/Sex: 22 / F Physician: [...] with any questions or concerns. Dictated By:Saeed WILKEST JESSICAT [id number] Dictated Date/Time:07/09/22 1055 Transcribed Date/Time:07/09/22 1055 07/09/22 1343 [facility] Diagnosis Encounter for care in second trimester of first - Primary Family history of spina bifida Family history of congenital anomalies Encounter for screening for nuchal translucency [facility] Diagnosis Encounter for nuchal translucency testing- Primary Other specified screening Encounter for screening of mother Unspecified screening Family history of cleft lip and palate Family history of congenital anomalies Family history of neural tube defect Family history of other neurological diseases [facility] Diagnosis 16 weeks gestation of - Primary state, incidental [facility] Diagnosis Nausea/vomiting in - Primary Unspecified vomiting of , unspecified as to episode of care 18 weeks gestation of state, incidental Need for influenza vaccination Need for prophylactic vaccination and inoculation against influenza [facility] Diagnosis Encounter for anatomic survey- Primary Encounter for care in second trimester of first 19 weeks gestation of state, incidental [facility] Diagnosis Anxiety neurosis- Primary Anxiety state, unspecified Panic attacks Panic disorder without agoraphobia [facility] Diagnosis Encounter for care in second trimester of first - Primary 22 weeks gestation of state, incidental [facility] Diagnosis Encounter for care in second trimester of first - Primary 26 weeks gestation of state, incidental with care elsewhere, antepartum History of anxiety Personal history of other mental disorder Family history of spina bifida Family history of congenital anomalies [facility] Diagnosis Encounter for care in third trimester of first - Primary 28 weeks gestation of state, incidental Need for vaccination Need for prophylactic vaccination and inoculation against unspecified single disease Encounter for supervision of normal first in third trimester Supervision of normal first [facility] Diagnosis Tinea corporis- Primary Dermatophytosis of [...] of state, incidental [facility] Diagnosis Anxiety- Primary Anxiety state, unspecified Chest pain, unspecified type documented in this encounter [facility] for referral (narrative)* Diagnostic Procedure Only (Routine) - Authorized Specialty Diagnoses / Procedures Referred By Ingrid gordon Referred To Contact [facility] Diagnoses Encounter for screening of mother Family history of cleft lip and palate Family history of neural tube defect Procedures NUCHAL TRANSLUCENCY WHI US NUCHAL TRANSLUCENCY 1ST GESTATION Regino Tuttle MD [address] [place] [address] [facility] [address] [place] [address] Referral ID Status Reason Start Date Expiration Date Visits Requested Visits Authorized [id number] Authorized Auto-Generat ed Referral 12/05/2022 12/05/2023 1 1 [facility] for referral (narrative)* Diagnostic Procedure Only (Routine) - Authorized Specialty Diagnoses / Procedures Referred By Ingrid gordon Referred To Contact [facility] Diagnoses Encounter for care in second trimester of first Procedures OBSTETRIC ULTRASOUND WHI US PREG UTERUS AFTER 1ST TRIMEST 1 GESTATION Jesi Tillman APRN.CNP [address] [place] [address] [facility] [address] [place] [address] Referral ID Status Reason Start Date Expiration Date Visits Requested Visits Authorized [id number] Authorized Auto-Generat ed Referral 12/11/2022 12/11/2023 1 1 [facility] Summary Purpose Family History No [...] Date [facility] CC Education - COMMON 12/09/2022 Reason for Referral Specialty Diagnoses / Procedures Referred By Ingrid gordon Referred To Contact [facility] Diagnoses Anxiety Procedures CONSULT TO PSYCHOLOGY OFFICE/OUTPATIENT [facility] 60 MINUTES Nurys Garcia, PACKING AND WRAPPING SUPERVISOR.CUSTOMER COMPLAINT SERVICE SUPERVISOR [address] [place] [address] [facility] Ref[facility] ID Status Reason Start Date Expiration Date Visits Requested Visits Authorized [id number] Pending Review PCP Requested Referral 05/20/2023 05/19/2024 1 1 Additional Source Comments INFORMATION SOURCE (unrecogn ized section and content) DATE CREATED AUTHOR AUTHOR'S ORGANIZ ATION 02/28/2021 [facility] DATE CREATED AUTHOR AUTHOR'S ORGANIZ ATION 02/03/2022 [facility] DATE CREATED AUTHOR AUTHOR'S ORGANIZ ATION 04/06/2023 [facility] DATE CREATED AUTHOR AUTHOR'S ORGANIZ ATION 05/01/2023 [facility] DATE CREATED AUTHOR AUTHOR'S ORGANIZ ATION 05/25/2023 [facility] DATE CREATED AUTHOR AUTHOR'S ORGANIZ ATION 06/07/2023 [facility] Source Comments (unrecognize d section and content) In the event this informatio n is protected by the Federal Confidentiality of Alcohol and Drug Abuse Patient Records regulations: The Federal rules restrict any use of the information to criminally investigate or prosecute any alcohol or drug abuse patient.[facility] the event this information is protected by the Federal Confidentiality of Alcohol and Drug Abuse Patient Records regulations: The Federal rules restrict any use of the information to criminally investigate or prosecute any alcohol or drug abuse patient.[facility] the event this information is protected by the Federal Confidentiality of Alcohol and Drug Abuse Patient Records regulations: The Federal rules restrict any use of the information to criminally investigate or prosecute any alcohol or drug abuse patient.[facility] the event this information is protected by the Federal Confidentiality of Alcohol and Drug Abuse Patient Records regulations: The Federal rules restrict any use of the information to criminally investigate or prosecute any alcohol or drug abuse patient.[facility] the event this information is protected by the Federal Confidentiality of Alcohol and Drug Abuse Patient Records regulations: The Federal rules restrict any use of the information to criminally investigate or prosecute any alcohol or drug abuse patient.[facility] the event this information is protected by the Federal Confidentiality of Alcohol and Drug Abuse Patient Records regulations: The Federal rules restrict any use of the information to criminally investigate or prosecute any alcohol or drug abuse patient.[facility] the event this information is protected by the Federal Confidentiality of Alcohol and Drug Abuse Patient Records regulations: The Federal rules restrict any use of the information to criminally investigate or prosecute any alcohol or drug abuse patient.[facility] the event this information is protected by the Federal Confidentiality of Alcohol and Drug Abuse Patient Records regulations: The Federal rules restrict any use of the information to criminally investigate or prosecute any alcohol or drug abuse patient.[facility] the event this information is protected by the Federal Confidentiality of Alcohol and Drug Abuse Patient Records regulations: The Federal rules restrict any use of the information to criminally investigate or prosecute any alcohol or drug abuse patient.[facility] the event this information is protected by the Federal Confidentiality of Alcohol and Drug Abuse Patient Records regulations: The Federal rules restrict any use of the information to criminally investigate or prosecute any alcohol or drug abuse patient.[facility] Center[facility] the event this information is protected by the Federal Confidentiality of Alcohol and Drug Abuse Patient Records regulations: The Federal rules restrict any use of the information to criminally investigate or prosecute any alcohol or drug abuse patient.[facility] Center[facility] the event this information is protected by the Federal Confidentiality of Alcohol and Drug Abuse Patient Records regulations: The Federal rules restrict any use of the information to criminally investigate or prosecute any alcohol or drug abuse patient.[facility] the event this information is protected by the Federal Confidentiality of Alcohol and Drug Abuse Patient Records regulations: The Federal rules restrict any use of the information to criminally investigate or prosecute any alcohol or drug abuse patient.[facility] Center[facility] the event this information is protected by the Federal Confidentiality of Alcohol and Drug Abuse Patient Records regulations: The Federal rules restrict any use of the information to criminally investigate or prosecute any alcohol or drug abuse patient.[facility] Center[facility] the event this information is protected by the Federal Confidentiality of Alcohol and Drug Abuse Patient Records regulations: The Federal rules restrict any use of the information to criminally investigate or prosecute any alcohol or drug abuse patient.[facility] Center[facility] the event this information is protected by the Federal Confidentiality of Alcohol and Drug Abuse Patient Records regulations: The Federal rules restrict any use of the information to criminally investigate or prosecute any alcohol or drug abuse patient.[facility] CenterIn the event this information is protected by the Federal Confidentiality of Alcohol and Drug Abuse Patient Records regulations: The Federal rules restrict any use of the information to criminally investigate or prosecute any alcohol or drug abuse patient.[facility] Center[facility] the event this information is protected by the Federal Confidentiality of Alcohol and Drug Abuse Patient Records regulations: The Federal rules restrict any use of the information to criminally investigate or prosecute any alcohol or drug abuse patient.[facility] Center[facility] the event this information is protected by the Federal Confidentiality of Alcohol and Drug Abuse Patient Records regulations: The Federal rules restrict any use of the information to criminally investigate or prosecute any alcohol or drug abuse patient.[facility] CenterIn the event this information is protected by the Federal Confidentiality of Alcohol and Drug Abuse Patient Records regulations: The Federal rules restrict any use of the information to criminally investigate or prosecute any alcohol or drug abuse patient.[facility] CenterIn the event this information is protected by the Federal Confidentiality of Alcohol and Drug Abuse Patient Records regulations: The Federal rules restrict any use of the information to criminally investigate or prosecute any alcohol or drug abuse patient.[facility] CenterIn the event this information is protected by the Federal Confidentiality of Alcohol and Drug Abuse Patient Records regulations: The Federal rules restrict any use of the information to criminally investigate or prosecute any alcohol or drug abuse patient.[facility] CenterIn the event this information is protected by the Federal Confidentiality of Alcohol and Drug Abuse Patient Records regulations: The Federal rules restrict any use of the information to criminally investigate or prosecute any alcohol or drug abuse patient.[facility] Reason for Visit (unrecogniz ed section and content) Reason Comments Initial OB Visit Transfer from [place] [facility] Reason Comments [place] Specialty Diagnoses / Procedures Referred By Contac t Referred To Contact [facility] Diagnoses Encounter for screening of mother Family history of cleft lip and palate Family history of neural tube defect Procedures NUCHAL TRANSLUCENCY WHI US NUCHAL TRANSLUCENCY 1ST GESTATION Regino Tuttle MD [address] [place] [address] [address] Referral ID Status Reason Start Date Expiration Date V isits Requested Visits Authorized [id number] Closed Auto-Generate d Referral 12/05/2022 12/05/2023 1 1 Reason Onset Date Comments Care 01/02/2023 Reason Onset Date Comments Care 01/14/2023 Immunizations 01/14/2023 Flu vaccination Specialty Diagnoses / Procedures Referred By Contac t Referred To Contact [facility] Diagnoses Encounter for care in second trimester of first Procedures OBSTETRIC ULTRASOUND WHI US PREG UTERUS AFTER 1ST TRIMEST GESTATION Jesi Tillman APRN.CUSTOMER COMPLAINT SERVICE SUPERVISOR [address] [place] [address] [facility] [address] [place] [address] Referral ID Status Reason Start Date Expiration Date V isits Requested Visits Authorized [id number] Closed Auto-Generate d Referral 12/11/2022 12/11/2023 1 1 Reason Comments Patient Question Reason Comments Anxiety Reason Onset Date Comments Care 02/12/2023 Reason Comments PRAF Reason Onset Date Comments Care 03/12/2023 Reason Onset Date Comments Care 03/26/2023 Reason Onset Date Comments Care 04/16/2023 Reason Comments OB HYATT Reason Comments Child Development Consultant - Other PRAF Reason Comments Establish Care Chest Pain Since . We nt to ER for this Reason Onset Date Comments Population Health Navigation Outreach 06/05/2023 OB/peds Care Teams (unrecognized sec tion and content) Emergency Communications Officer Relationship Specialty Start Date End Date Cleve Turcios PA-C [facility] [place] [address] PCP - General 11/28/22 Emergency Communications Officer Relationship Specialty Start Date End Date Cleve Turcios PA-C [address] [place] [address] PCP - General 11/28/22 Emergency Communications Officer Relationship Specialty Start Date End Date Cleve Turcios PA-C [address] [place] [address] PCP - General 11/28/22 Emergency Communications Officer Relationship Specialty Start Date End Date Cleve Chaney PA-C PCP - General 11/28/22 Emergency Communications Officer Relationship Specialty Start Date End Date Cleve Chaney PA-C PCP - General 11/28/22 Emergency Communications Officer Relationship Specialty Start Date End Date Cleve Chaney PA-C PCP - General 11/28/22 Emergency Communications Officer Relationship Specialty Start Date End Date Cleve Chaney PA-C PCP - General 11/28/22 Emergency Communications Officer Relationship Specialty Start Date End Date Cleve Chaney PA-C PCP - General 11/28/22 Emergency Communications Officer Relationship Specialty Start Date End Date Cleve Chaney PA-C PCP - General 11/28/22 Emergency Communications Officer Relationship Specialty Start Date End Date Cleve Chaney PA-C PCP - General 11/28/22 Emergency Communications Officer Relationship Specialty Start Date End Date Cleve Chaney PA-C PCP - General 11/28/22 Emergency Communications Officer Relationship Specialty Start Date End Date Cleve Chaney PA-C PCP - General 11/28/22 Emergency Communications Officer Relationship Specialty Start Date End Date Cleve Chaney PA-C PCP - General 11/28/22 Emergency Communications Officer Relationship Specialty Start Date End Date Cleve Chaney PA-C PCP - General 11/28/22 Emergency Communications Officer Relationship Specialty Start Date End Date Cleve Chaney PA-C PCP - General 11/28/22 Emergency Communications Officer Relationship Specialty Start Date End Date Cleve Chaney PA-C PCP - General 11/28/22 Emergency Communications Officer Relationship Specialty Start Date End Date Nurys Garcia APRN.CUSTOMER COMPLAINT SERVICE SUPERVISOR [address] [place] [address] PCP - General Family Medicine 05/20/23 Emergency Communications Officer Relationship Specialty Start Date End Date Nurys Garcia, PACKING AND WRAPPING SUPERVISOR.CUSTOMER COMPLAINT SERVICE SUPERVISOR [address] [place] [address] PCP - General Family Medicine 05/20/23 Emergency Communications Officer Relationship Specialty Start Date End Date Nurys Garcia, PACKING AND WRAPPING SUPERVISOR.CUSTOMER COMPLAINT SERVICE SUPERVISOR [address] [place], [place] [id number] PCP - General Family Medicine 05/20/23 FOR RECORDS PERTAINING TO PATIENTS WHO ARE [...] BE BASED ON THE PRIMARY CLINICAL RECORDS. [facility] [employer], [facility]. provides no warranty or guarantee of the accuracy or completeness of information in this document.
[2023-06-08 21:26] VITALS: BP 140/89; PULSE 82; TEMP 37
[2023-06-08 21:29] VITALS: BMI 24.3
[2023-06-08 21:33] VITALS: PULSE 76; O2SAT 81
[2023-06-08 21:36] VITALS: BP 134/86; PULSE 92
[2023-06-08 23:34] VITALS: PULSE 76; O2SAT 98
[2023-06-08 23:35] VITALS: BP 132/75; PULSE 77
--- NOTE | 2023-06-09 05:38 | OB.TRI.NOTE ---
HPI - General General Date of Admission: 06/08/23 Date of Service: 06/08/23 Chief Complaint: contractions HPI Narrative TENZIN QIU, is a 23 F who presents 1 para 0 with contractions. Maternal Data Information Final JOHN: 06/16/23 Gestational age: 38 6/7 [facility] Medical History (Updated 06/09/23 @ 05:[address] Oksana Devlin MD) Cheek injury Home Medications vitamins no.144-folic acid 400 mcg chewable tablet () 1 tab PO DAILY 01/09/23 [History Last Taken 06/08/23 08:00] famotidine 20 mg tablet 20 mg PO DAILY 04/25/23 [History Last Taken 05/10/23 08:00 20 mg] pyridoxine (vitamin B6) 25 mg tablet 25 mg PO DAILY 05/10/23 [History Last Taken 06/08/23 08:00] sertraline 25 mg tablet (Zoloft) 25 mg PO DAILY anxiety 06/08/23 [History Last Taken 06/08/23 08:00] Allergy/AdvReac Type Severity Reaction Status Date / Time No Known Allergies Allergy Verified 06/08/23 21:34 Social History Smoking Status: Never smoker NST FHR Rate Baby A Baseline: 120 Variability:: Moderate Accelerations:: 15 x 15 Decelerations:: None NST Reactive:: Yes FHR Category:: Category I Uterine Activity:: irreg ctxs Assessment & Plan (1) False labor after 37 completed weeks of gestation: PLAN: 38-6/7 weeks gestation. Patient was observed for several hours in labor and delivery without cervical change. She was discharged home with instructions to follow-up as scheduled or as needed.
== END 2023-06-08 23:55 | disposition home or self-care (01) ==
LOC: WPOUT 21:16 → WP 21:16
PROVIDERS: Referring Provider Obstetrics & Gynecology; Visit Provider Obstetrics & Gynecology
DX: O47.1 False labor at or after 37 completed weeks of gestation (principal); Z3A.37 37 weeks gestation of pregnancy
CPT/HCPCS: 59025; 59050 ×2; G0378 ×2; 99221

== ENCOUNTER 2023-06-09 05:02 | Inpatient (IN) | payer MEDICAID, SELFPAY ==
[2023-06-09] VITALS (32 sets, daily range): BP systolic 114–142; BP diastolic 57–91; PULSE 70–106; RESP 16; TEMP 36.1–37.4; O2SAT 98–100; BMI 24.3
[2023-06-09] MEDS: Oxytocin 10 UNITS/ML Vial IM (05:04)
--- NOTE | 2023-06-09 05:46 | PCM.HP.OB ---
HPI - General General Date of Admission: 06/09/23 Date of Service: 06/16/23 Chief Complaint: labor HPI Narrative TENZIN QIU, is a 23 female 1 para 0 at 39 weeks gestation presents complaining of spontaneous rupture membranes and worsening contractions. She was seen in triage last night and evaluated and sent home. During the she had an abnormal 1 hour glucose but passed her 3-hour glucose. She also has a history of anxiety. Maternal Data Information Final JOHN: 06/16/23 Gestational age: 39 [facility] Medical History (Updated 06/09/23 @ 05:[address] Oksana Devlin MD) Cheek injury Home Medications vitamins no.144-folic acid 400 mcg chewable tablet () 1 tab PO DAILY 01/09/23 [History Last Taken 06/08/23 08:00] famotidine 20 mg tablet 20 mg PO DAILY 04/25/23 [History Last Taken 05/10/23 08:00 20 mg] pyridoxine (vitamin B6) 25 mg tablet 25 mg PO DAILY 05/10/23 [History Last Taken 06/08/23 08:00] sertraline 25 mg tablet (Zoloft) 25 mg PO DAILY anxiety 06/08/23 [History Last Taken 06/08/23 08:00] Allergy/AdvReac Type Severity Reaction Status Date / Time No Known Allergies Allergy Verified 06/08/23 21:34 Social History Smoking Status: Never smoker ROS Constitutional Constitutional: Denies fatigue, fever(s) or malaise Eyes Eyes: Denies change in vision ENT HEENT: Denies dizziness or headache(s) Cardiovascular Cardiovascular: Denies chest pain, dyspnea or lightheadedness Respiratory/Chest Respiratory/Chest: Denies cough or dyspnea Gastrointestinal Gastrointestinal: Denies change in bowel habits Genitourinary Genitourinary: Denies burning urination or genital lesions Integumentary Integumentary: Denies rash Neurologic Neurologic: Denies confusion, dizziness, headache(s), numbness or weakness Vital Signs Vital Signs Vital Signs: 06/09/23 04:49 06/09/23 04:49 06/09/23 04:49 Pulse Rate 96 Blood Pressure 142/91 H BP Systolic 142 BP Diastolic 91 Pulse Ox 98 06/09/23 05:21 06/09/23 05:21 06/09/23 05:21 Pulse Rate 87 Blood Pressure 129/79 H BP Systolic 129 BP Diastolic 79 Pulse Ox 100 06/09/23 05:26 06/09/23 05:26 06/09/23 05:31 Pulse Rate 86 80 Blood Pressure BP Systolic BP Diastolic Pulse Ox 100 06/09/23 05:31 06/09/23 05:36 06/09/23 05:36 Pulse Rate 71 Blood Pressure 139/77 H BP Systolic 139 BP Diastolic 77 Pulse Ox 100 06/09/23 05:36 06/09/23 05:36 06/09/23 05:41 Pulse Rate 77 76 Blood Pressure BP Systolic BP Diastolic Pulse Ox 100 06/09/23 05:41 Pulse Rate Blood Pressure BP Systolic BP Diastolic Pulse Ox 100 Physical Exam Const alert and no apparent distress General Appearance: cooperative HEENT normocephalic Resp normal respiratory effort Cardio regular rate GI soft to palpation GI Narrative: gravid, nontender, appropriate for gestational age Extremity no calf tenderness General Extremity: edema Skin no wounds Rashes: No rashes noted Psych activity/motor behavior normal Labs Labs Labs: Hct 31.7 % (37-47) L Hgb 10.9 g/dL (12.0-15.0) L Assessment & Plan (1) Spontaneous onset of labor: PLAN: Spontaneous labor at 39 weeks. Estimated weight was less than 4000 g and pelvis clinically adequate to expect vaginal delivery. She is planned to have an elective induction this week. Patient arrived complete with the urge to push. (2) 39 weeks gestation of :
[2023-06-09 06:10] LABS: Absolute Lymphocyte Count 0.82 X10^3/uL (0.83-4.51); Absolute Neutrophil Count 16.8 X10^3/uL (2.0-7.7); Basophil# 0.05 X10^3/uL; Basophil% 0.3 % (0-1); Hematocrit 34.2 % (37-47); Hemoglobin 11.6 g/dL (12.0-15.0); Lymphocyte # 0.82 X10^3/ul (0.83-4.51); Lymphocyte % 4.5 % (19-41); Mean Corp Hgb Conc 33.9 g/dL (32-36); Mean Corpuscular Hgb 30.8 pg (27.0-32.0); Mean Corpuscular Volume 90.7 fL (81-99); Mean Platelet Vol. 10.1 fl (6.2-12.0); Monocyte# 0.27 X10^3/uL; Monocyte% 1.5 % (0-10); NRBC Flagged by Analyzer 0 % (0-5); Neutrophil # 16.84 X10^3/uL (2.7-7.7); Platelet Count 195 K/mm3 (150-450); RBC Distribution Width CV 13.1 % (11.6-14.6); RBC Distribution Width SD 42.6 fl (35.1-43.9); Red Blood Count 3.77 M/mm3 (4.2-5.4); White Blood Count 18.1 K/mm3 (4.4-11.0)
[2023-06-09] MEDS: Ibuprofen 600 MG Tablet PO (08:12)
[2023-06-09 08:35] LABS: Syphilis Antibodies Non-reactive
[2023-06-09] MEDS: Acetaminophen 500 MG Tablet 1000 MG PO (10:54)
[2023-06-09] MEDS: Sertraline 50 MG Tablet 25 MG PO (11:07)
[2023-06-10] VITALS (8 sets, daily range): BP systolic 106–133; BP diastolic 67–87; PULSE 75–83; RESP 14–18; TEMP 36.7–37.3; O2SAT 97–98
[2023-06-10] MEDS: Ibuprofen 600 MG Tablet PO (00:19)
--- NOTE | 2023-06-10 05:48 | PN.OBGYN_ITS ---
Subjective Subjective Doing well per patient and nursing staff. Ambulating and taking PO without difficulty. Voiding and passing flatus. Pain controlled. , services for assistance. Denies headache, visual changes, chest pain, shortness of breath, leg pain or increased bleeding. Lochia normal. Objective Data Objective Data Vital Signs: Vital Signs Temp Pulse Resp BP Pulse Ox O2 Del Method 98.6 F 83 16 106/67 98 Room Air 06/10/23 03:51 06/10/23 03:51 06/10/23 03:51 06/10/23 03:51 06/10/23 00:22 06/10/23 03:51 Oxygen Delivery Method Room Air Weight: 133 lb 2.547 oz Body Mass Index (BMI) 24.3 Intake & Output: Intake and Output for Last 24 Hours 06/08/23 06/09/23 06/10/23 23:59 23:59 23:59 Output Total 1250 / 1250 Balance -1250 / -1250 Lab / Micro Data 06/09/23 05:20 Labs: Laboratory Results - last 24 hr 06/09/23 05:20: WBC 18.1 H, RBC 3.77 L, Hgb 11.6 L, Hct 34.2 L, MCV 90.7, MCH 30.8, MCHC 33.9, RDW Std Deviation 42.6, RDW Coeff of Sonu 13.1, Plt Count 195, MPV 10.1, Immature Gran % (Auto) 0.700, Neut % (Auto) 93.0 H, Lymph % (Auto) 4.5 L, [place] % (Auto) 1.5, Eos % (Auto) 0.0, Baso % (Auto) 0.3, Absolute Neuts (auto) 16.8 H, Absolute Lymphs (auto) 0.82 L, Nucleated RBC % 0, Syphilis Total Ab Non- reactive, Blood Type A POSITIVE, Antibody Screen NEGATIVE Physical Exam Const alert and oriented x3 General Appearance: cooperative Orientation / Consciousness: awake, oriented to person, oriented to place and oriented to time Exam Limitations: no limitations HEENT normocephalic Head and Scalp: normal to inspection, normocephalic and atraumatic Face and Sinus: normal facial exam Eyes General Eye: normal appearance of both eyes Neck full ROM Chest Chest: symmetrical chest wall rise Resp normal respiratory effort and normal air movement Auscultation: clear to auscultation bilaterally Cardio regular rate, regular rhythm, S1 normal heart sound, S2 normal heart sound, no murmurs, no rub, no gallops and no clicks GI normal to inspection, nondistended, normoactive bowel sounds and non-tender appearance of the vagina normal Bladder / Kidney Exam: no CVA tenderness Back/Spine normal ROM Extremity normal to inspection and full ROM Skin no rashes or lesions noted Neuro oriented x3, CN's II-XII intact bilaterally and moves all extremities Sensorium / Orientation: awake, alert and oriented to person Motor Exam: clonus absent Deep Tendon Reflexes: Rt Patellar (L4): 2+ and Lt Patellar (L4): 2+ Assessment & Plan (1) Vaginal delivery: PLAN: Plan 1) Routine PP care 2) Pain management 3) 4) Follow up in 2 weeks and 6 weeks
--- NOTE | 2023-06-10 05:49 | DS.PCM_ITS ---
Providers Date of Admission: 06/09/23 Primary Care Physician: Marsha Primary Care Phys Reason For Visit: VAGINAL DELIVERY Diagnosis Discharge Diagnosis (1) Vaginal delivery: Status: Acute Code(s): O80 - Encounter for full-term uncomplicated delivery Plan 1) Routine PP care 2) Pain management 3) 4) Follow up in 2 weeks and 6 weeks Medications at Discharge Home Medications vitamins no.144-folic acid 400 mcg chewable tablet () 1 tab PO DAILY 01/09/23 sertraline 25 mg tablet (Zoloft) 25 mg PO DAILY anxiety 06/08/23 acetaminophen 500 mg tablet 1,000 mg (2 x 500 mg) PO Q6H PRN PRN Pain 1-10 Or Fever #0 tabs 06/10/23 ibuprofen 600 mg tablet 600 mg PO Q6H PRN PRN Pain Score 1-3 #0 tabs 06/10/23 Hospital Course Summary of Care Provided Minutes Spent on Discharge: 15 Weight / BMI Weight Weight: 133 lb 2.547 oz Body Mass Index (BMI) 24.3 ABG / Lab / Microbiology Data 06/09/23 05:20 Laboratory: Laboratory Results - last 24 hr 06/09/23 05:20: WBC 18.1 H, RBC 3.77 L, Hgb 11.6 L, Hct 34.2 L, MCV 90.7, MCH 30.8, MCHC 33.9, RDW Std Deviation 42.6, RDW Coeff of Sonu 13.1, Plt Count 195, MPV 10.1, Immature Gran % (Auto) 0.700, Neut % (Auto) 93.0 H, Lymph % (Auto) 4.5 L, [place] % (Auto) 1.5, Eos % (Auto) 0.0, Baso % (Auto) 0.3, Absolute Neuts (auto) 16.8 H, Absolute Lymphs (auto) 0.82 L, Nucleated RBC % 0, Syphilis Total Ab Non- reactive, Blood Type A POSITIVE, Antibody Screen NEGATIVE D/C Instructions When: Follow up in 2 weeks and 6 weeks for PP visit Meaningful Use Info Meaningful Use Diagnoses (Choose all that apply): None applicable Discharge Plan Admission Admit Date/Time: 06/09/23 05:02 Primary Reason for Your Visit: Vaginal Delivery Attending Provider: Oksana Devlin Primary Care Provider: Care Physician,No Primary Discharge Orders/Prescriptions Prescriptions: New acetaminophen 500 mg Tablet 1,000 mg PO Q6H PRN PRN (Reason: Pain 1-10 Or Fever) Qty: 0 0RF ibuprofen 600 mg Tablet 600 mg PO Q6H PRN PRN (Reason: Pain Score 1-3) Qty: 0 0RF Continued 400 mcg tablet,chewable 1 tab PO DAILY sertraline [Zoloft] 25 mg tablet 25 mg PO DAILY Discontinued famotidine 20 mg tablet 20 mg PO DAILY Hold Instructions: Order Completed pyridoxine (vitamin B6) 25 mg tablet 25 mg PO DAILY Referrals / Follow Up: Care Physician,No Primary [Primary Care Provider] - Disposition Disposition (needs filled in before D/C Order can be placed): Home, Self Care
--- NOTE | 2023-06-10 10:32 | CASEMGMT ---
Social Work Assessment Labor and Delivery Unit Patient Address:[address] [place] [address] Phone number: [phone] Date of Referral: 06/09/23 Time of Referral:?1800 Referred By: Oksana Devlin Date of Intervention: 06/10/23?? Time of Intervention:? 929 Reason for Referral:? hx anxiety, on zoloft Sw completed chart review and acknowledged social work consult due to maternal mental health history positive for anxiety. Sw presented to bedside and introduced self to mother of baby (PACO- Yee). Sw explained reason for sw visit and completed psychosocial assessment. Sw provided education, support and encouragement. MOB completed [place] Depression Scale. History obtained from: medical records, MOB Household composition: Currently residing in the family home is PACO, ZAY and now baby. MOB denies any issues or concerns with housing at this time, reporting home is safe and secure. Patient's parent/guardian status:? ?MOB states that she and FOB met a year ago at a constitution party. MOB states that baby is first baby for both parents. MOB denies any issues or concerns with domestic violence or intimate partner violence at this time. Medical History: ?PACO is 23 year old female who is 1, para 0- now 1 following labor and delivery of . PACO received routine care during with [facility]. PACO delivered baby via vaginal delivery on 06/09/23 at 39 weeks gestation. Baby boy, named Carmen, was born weighing 6lb 8oz and his apgars were 8 and 9 at one and five minutes of life respectfully. MOB states that she is feeding baby with formula and has bottles at home. MOB states that baby will be followed by Dr. Nielsen for pediatrics. Educational Status:? MOB reports that she and FOB completed high school, no college education. No concerns with reading, learning or comprehension. Financial Status: MOB states that both parents are employed outside of the home. 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 MOB states that ZAY is only given two days off of work, but PACO is able to take off as much time as she needs before returning to work. Infant Supplies:?? Parents have obtained all necessary baby supplies, including: car seat, safe sleep space, clothes, diapers and wipes. Childcare/Caregiver(s):? MOB will be the primary caregiver to baby along with FOSusan when he is not at work. When both parents are working paternal grandma will be able to provide childcare. Transportation:?? Both parents have their drivers license and reliable means of transportation. No barriers at this time. Programs/Agencies Involved: ???PACO is connected to insurance through [employer] and Family Services ([facility]) and [facility]. Children Services/Legal Issues:??? No history of children services involvement, no issues or concerns warranting a referral at this time. Behavioral Health Issues: ??Mental Health History:?PACO states that ZAY does not have any mental health diagnoses. PACO states that she has been diagnosed with anxiety. MOB reports that at baseline her anxiety is manageable. PACO is currently prescribed zoloft by her primary care doctor. MOB states that she has been educated on signs and symptoms of baby blues and to be on the lookout for. ?? Substance Use History:??MOB denies substance use history prior to and during . Family History:?MOB denies family history of addiction or substance use issues. PACO states that her mom has BiPolar, her symptoms are managed and she is identified as a good support. ? Drug Screens: ??No urine screens observed in chart review. Family/Social Stressors:? PACO denies any issues or concerns at this time. Support Systems: PACO reports that paternal grandma, maternal grandma, and FOB are her biggest supports at this time. Depression/Shaken Baby/Safe Sleeping:? Sw educated MOB on signs and symptoms of baby blues and depression and anxiety. MOB expressed understanding. Sw educated MOB on shaken baby syndrome and ABCs of safe sleep. MOB expressed understanding. Sw encouraged MOB to talk to ZAY about how he can support her if she would struggle with mental health symptoms during her journey. ASSESSMENT:? MOB and baby admitted following labor and delivery of . MOB quiet and does not hold conversation. MOB made eye contact and answered questions asked, but offered no additional information throughout conversation. MOB observed providing appropriate and loving hands on care to . MOB with menta health history, and is connected to mental health supports/ medications. MOB with all necessary baby supplies and supports. PLAN:? MOB and baby to be discharged when medically ready. ?No other services requested or indicated. Yuridia Schultz, AIR BAG BUILDER, DUDE RANCH MANAGER
[2023-06-10] MEDS: Sertraline 50 MG Tablet 25 MG PO (12:10)
--- NOTE | 2023-06-10 17:39 | EX.PCM.OBRPT ---
Assessment & Plan (1) 39 weeks gestation of : (2) Spontaneous onset of labor: (3) (spontaneous vaginal delivery): Maternal Data Information Final JOHN: 06/16/23 Gestational age: 39 0-7 Vaginal Delivery Maternal Presentation Maternal Presentation: Active Labor Operative Information Date of Procedure: 06/09/23 Pre-Operative Diagnosis: labor Post-Operative Diagnosis: same Type of Anesthesia: Local with 1% Lidocaine (15 cc) Special Medications: none Drain: - (none) Estimated Blood Loss: 300 Time of Delivery: 05:01 Findings Description of Procedure: of vigorous male infant JANE over small fist degree laceration. REmainder of delivered with one push in < 15 seconds without difficulty through a tight nucal cord. Spontaneous delivery of placenta intact with 3 vessel cord. Cervix and vagina intact. First degree laceration repaired with 2-0 vicryl and was hemostatic. Vaginal sweep performed by me. Sponge and needle counts were correct Presentation: JANE Amniotic Membrane Rupture Type: Artificial Amniotic Fluid Description: Clear (with terminal meconium) Placental Delivery Description: Spontaneous Placenta Disposition: [facility] Cord Vessel Description: 3 Vessels Cord Entanglement: Around neck x 1, tight Nuchal Cord Compression: Without compression Infant A Gender: Male (1 minute): 8 (5 minute): 9 Delayed Cord Clamping: Yes Post Vaginal Delivery Medications Given After Delivery: IV Pitocin Episiotomy Description: None Laceration: 1st degree Complication Complications: None
== END 2023-06-10 15:25 | disposition home or self-care (01) | DRG 560 ==
LOC: WPOUT 05:02 → WP 05:02
PROVIDERS: Admitting Provider Obstetrics & Gynecology; Referring Provider Obstetrics & Gynecology; Visit Provider Obstetrics & Gynecology
DX: O70.0 First degree perineal laceration during delivery (principal); Z37.0 Single live birth; O69.1XX0 Labor and delivery complicated by cord around neck, with compression, not applicable or unspecified; Z3A.39 39 weeks gestation of pregnancy
CPT/HCPCS: 59025; 59050; 85025; 86780; 86850; 86900; 86901; 99221; G0378